=== PATIENT | male | born 1945 | race Caucasian/White ===

== ENCOUNTER 2017-11-14 09:41 | Emergency (ER) | payer MEDICARE, MEDICAID ==
[2017-11-14 10:42] LABS: ADD MAN DIFF? NO
[2017-11-14 10:44] LABS: WHITE BLOOD COUNT 4.6 10^3/ul (4.8-10.8)
[2017-11-14 10:45] LABS: ABNORMAL IP MESSAGE 1; BASOPHILS % 0.6 % (0.0-2.0); EOSINOPHILS # 0.3 10^3/ul (0.0-0.5); EOSINOPHILS % 5.4 % (0.0-7.0); HEMATOCRIT 21.6 % (42.0-52.0); LYMPHOCYTES # 0.7 10^3/ul (0.8-2.9); LYMPHOCYTES % 14.9 % (15.0-51.0); MEAN CORPUSCULAR HEMOGLOBIN 25.4 pg (29.0-33.0); MEAN CORPUSCULAR HGB CONC 29.6 g/dl (32.0-37.0); MEAN CORPUSCULAR VOLUME 85.7 fl (82.0-101.0); MONOCYTE # 0.3 10^3/ul (0.3-0.9); MONOCYTES % 7.3 % (0.0-11.0); NEUTROPHIL # 3.3 10^3/ul (1.6-7.5); NEUTROPHILS % 71.4 % (39.0-77.0); PLATELET COUNT 335 10^3/UL (140-415); POSITIVE DIFF @See below; RED BLOOD COUNT 2.52 10^6/ul (4.70-6.10); RED CELL DISTRIBUTION WIDTH 16.9 % (11.5-14.5)
[2017-11-14 11:12] LABS: HEMOGLOBIN 6.4 g/dl (14.0-18.0); PATH REVIEW? YES
[2017-11-14 11:51] LABS: ANION GAP 14 (8-16); BLOOD UREA NITROGEN 21 mg/dl (7-20); CALCIUM 6.7 mg/dl (8.4-10.2); CARBON DIOXIDE 26 mmol/L (21-31); CHLORIDE 107 mmol/L (97-110); CREATININE 4.14 mg/dl (0.61-1.24); GLUCOSE 106 mg/dl (70-220); POTASSIUM 3.1 mmol/L (3.5-5.1); SODIUM 144 mmol/L (135-144)
[2017-11-14 14:29] LABS: IMMEDIATE SPIN CROSSMATCH 1 2
== END 2017-11-14 16:58 | disposition home or self-care (01) ==
LOC: E/R 09:41
PROVIDERS: Pediatrics
DX: D64.9 Anemia, unspecified (principal); E11.22 Type 2 diabetes mellitus with diabetic chronic kidney disease; N18.6 End stage renal disease; Z79.4 Long term (current) use of insulin; Z79.01 Long term (current) use of anticoagulants; Z99.2 Dependence on renal dialysis; Z79.82 Long term (current) use of aspirin
CPT/HCPCS: 36415; 36430; 80048; 85025; 86850; 86900; 86901; 86920; 99285-25

== ENCOUNTER 2017-11-30 16:27 | Inpatient (IN) | payer MEDICARE, OTHER, MEDICAID ==
[2017-11-30 19:45] LABS: ADD MAN DIFF? NO
[2017-11-30 19:52] LABS: WHITE BLOOD COUNT 19.7 10^3/ul (4.8-10.8)
[2017-11-30 19:52] LABS: ABNORMAL IP MESSAGE 1; BASOPHIL # 0.1 10^3/ul (0.0-0.1); BASOPHILS % 0.3 % (0.0-2.0); EOSINOPHILS % 0.2 % (0.0-7.0); HEMATOCRIT 28.8 % (42.0-52.0); HEMOGLOBIN 8.7 g/dl (14.0-18.0); LYMPHOCYTES # 0.5 10^3/ul (0.8-2.9); LYMPHOCYTES % 2.5 % (15.0-51.0); MEAN CORPUSCULAR HEMOGLOBIN 25.3 pg (29.0-33.0); MEAN CORPUSCULAR HGB CONC 30.2 g/dl (32.0-37.0); MEAN CORPUSCULAR VOLUME 83.7 fl (82.0-101.0); MEAN PLATELET VOLUME 9.3 fl (7.4-10.4); MONOCYTE # 0.8 10^3/ul (0.3-0.9); MONOCYTES % 3.8 % (0.0-11.0); NEUTROPHIL # 18.2 10^3/ul (1.6-7.5); NEUTROPHILS % 92.3 % (39.0-77.0); PLATELET COUNT 286 10^3/UL (140-415); POSITIVE DIFF @See below; RED BLOOD COUNT 3.44 10^6/ul (4.70-6.10); RED CELL DISTRIBUTION WIDTH 18.1 % (11.5-14.5)
[2017-11-30] MEDS: ACETAMINOPHEN 325 MG TAB PO (19:54)
[2017-11-30] MEDS: SODIUM CHLORIDE 0.9% 1L BAG IV* (19:55)
[2017-11-30 20:05] LABS: ALANINE AMINOTRANSFERASE 24 IU/L (13-69); ALBUMIN 4.2 g/dl (3.3-4.9); ALBUMIN/GLOBULIN RATIO 1.16; ALKALINE PHOSPHATASE 204 IU/L (42-121); ANION GAP 18 (8-16); ASPARTATE AMINO TRANSFERASE 91 IU/L (15-46); BILIRUBIN,INDIRECT 0.4 mg/dl (0-1.1); BILIRUBIN,TOTAL 0.4 mg/dl (0.2-1.3); BLOOD UREA NITROGEN 28 mg/dl (7-20); CALCIUM 8.8 mg/dl (8.4-10.2); CARBON DIOXIDE 32 mmol/L (21-31); CHLORIDE 91 mmol/L (97-110); CREATININE 5.41 mg/dl (0.61-1.24); GLUCOSE 163 mg/dl (70-220); POTASSIUM 3.3 mmol/L (3.5-5.1); SODIUM 138 mmol/L (135-144); TOTAL PROTEIN 7.8 g/dl (6.1-8.1)
[2017-11-30 20:17] LABS: INR 1.15; PROTIME 14.9 Sec (11.9-14.9); PT RATIO 1.2
[2017-11-30 20:18] LABS: PARTIAL THROMBOPLASTIN TIME 37.4 Sec (25.0-35.0)
[2017-11-30 20:30] LABS: LACTIC ACID 1.9 mmol/L (0.5-2.0)
[2017-11-30] MEDS: SOD CHLORIDE 0.9% 500 ML IV (20:56)
[2017-11-30] MEDS: CEFEPIME 1GM/50 ML (PMX) 50 ML IVPB (20:56)
[2017-11-30 21:16] LABS: LACTIC ACID 1.3 mmol/L (0.5-2.0)
[2017-11-30] MEDS: ASPIRIN 81 MG TAB PO (21:35)
[2017-11-30] MEDS: VANCOMYCIN 1 GM (PMX) 250 ML IVPB (21:45)
[2017-11-30] MEDS ORDERED: ONDANSETRON 4 MG INJ IV (22:00)
[2017-11-30] MEDS ORDERED: ACETAMINOPHEN 325 MG TAB PO (22:00)
[2017-11-30 23:26] LABS: LACTIC ACID 0.9 mmol/L (0.5-2.0)
[2017-12-01 09:31] LABS: CREATINE KINASE 720 IU/L (23-200)
[2017-12-01 09:43] LABS: CK INDEX 0.9; CK-MB 6.54 ng/ml (0.0-2.4)
[2017-12-01] MEDS: CLOPIDOGREL 75 MG TAB PO (11:24)
[2017-12-01] MEDS: HEPARIN 25000 UNITS/250 ML 250 ML IV (11:30)
[2017-12-01 12:59] LABS: INR 1.22; PROTIME 15.6 Sec (11.9-14.9); PT RATIO 1.2
[2017-12-01 13:02] LABS: PARTIAL THROMBOPLASTIN TIME 48.5 Sec (25.0-35.0)
[2017-12-01] MEDS ORDERED: VANCOMYCIN IV PER PHARMACY XX (15:00)
[2017-12-01] MEDS ORDERED: NACL 0.9% 3 ML SYG IV (15:00)
[2017-12-01] MEDS ORDERED: ONDANSETRON 4 MG INJ IV (15:00)
[2017-12-01] MEDS ORDERED: GLUCAGON 1 MG INJ IM (16:00)
[2017-12-01] MEDS ORDERED: DEXTROSE 50% 50 ML SYRINGE IV (16:00)
[2017-12-01] MEDS ORDERED: GLUCOSE GEL 15 GRAM TUBE BUCCAL (16:00)
[2017-12-01] MEDS ORDERED: GLUCOSE GEL 15 GRAM TUBE PO ×2 (16:00)
[2017-12-01] MEDS: CEFEPIME 1GM/50 ML (PMX) 50 ML IVPB (17:57)
[2017-12-01] MEDS: INSULIN ASPART [NOVOLOG] 3 ML PEN SC ×3 (18:00→22:08)
[2017-12-01 18:23] LABS: INR 1.15; PROTIME 14.9 Sec (11.9-14.9); PT RATIO 1.2
[2017-12-01 18:24] LABS: PARTIAL THROMBOPLASTIN TIME 53.7 Sec (25.0-35.0)
[2017-12-01] MEDS: VANCOMYCIN 500MG/NS (PMX) 100 ML IVPB (19:16)
[2017-12-01] MEDS: SEVELAMER CARBONATE 0.8 GM PKT PO (20:05)
[2017-12-01] MEDS: MIDODRINE 5 MG TAB PO (20:13)
[2017-12-01] MEDS: INSULIN DETEMIR [LEVEMIR] (100 UNITS/ML) SYG SC (20:13)
[2017-12-01] MEDS: HEPARIN 1000 UNITS/ML 10 ML INJ IV (23:08)
[2017-12-02 00:18] LABS: PROTIME 14.4 Sec (11.9-14.9); PT RATIO 1.1
[2017-12-02 00:20] LABS: PARTIAL THROMBOPLASTIN TIME 59.1 Sec (25.0-35.0)
[2017-12-02] MEDS: HEPARIN 25000 UNITS/250 ML 250 ML IV ×4 (01:04→22:58)
[2017-12-02] MEDS: ACCU-CHEK XX (02:00)
[2017-12-02] MEDS: DEXTROSE 50% 50 ML SYRINGE IV (04:12)
[2017-12-02] MEDS: HYDROCODONE/APAP (5/325) TAB PO ×2 (04:20→10:05)
[2017-12-02] MEDS ORDERED: HEPARIN 1000 UNITS/ML 10 ML INJ IV (05:00)
[2017-12-02] MEDS: LEVOTHYROXINE 100 MCG TAB PO (07:00)
[2017-12-02] MEDS: SEVELAMER CARBONATE 0.8 GM PKT PO ×3 (07:54→17:31)
[2017-12-02] MEDS: INSULIN ASPART [NOVOLOG] 3 ML PEN SC ×8 (08:00→21:00)
[2017-12-02 08:10] LABS: ADD MAN DIFF? NO
[2017-12-02 08:23] LABS: BASOPHIL # 0.1 10^3/ul (0.0-0.1); BASOPHILS % 0.5 % (0.0-2.0); EOSINOPHILS # 0.5 10^3/ul (0.0-0.5); EOSINOPHILS % 3.5 % (0.0-7.0); HEMATOCRIT 25.1 % (42.0-52.0); HEMOGLOBIN 7.6 g/dl (14.0-18.0); LYMPHOCYTES # 1.2 10^3/ul (0.8-2.9); MEAN CORPUSCULAR HEMOGLOBIN 25.6 pg (29.0-33.0); MEAN CORPUSCULAR HGB CONC 30.3 g/dl (32.0-37.0); MEAN CORPUSCULAR VOLUME 84.5 fl (82.0-101.0); MEAN PLATELET VOLUME 10.4 fl (7.4-10.4); MONOCYTE # 0.9 10^3/ul (0.3-0.9); MONOCYTES % 6.3 % (0.0-11.0); NEUTROPHIL # 11.8 10^3/ul (1.6-7.5); NEUTROPHILS % 80.8 % (39.0-77.0); PLATELET COUNT 245 10^3/UL (140-415); RED BLOOD COUNT 2.97 10^6/ul (4.70-6.10)
[2017-12-02 08:23] LABS: WHITE BLOOD COUNT 14.7 10^3/ul (4.8-10.8)
[2017-12-02 08:36] LABS: ALANINE AMINOTRANSFERASE 83 IU/L (13-69); ALBUMIN 3.7 g/dl (3.3-4.9); ALBUMIN/GLOBULIN RATIO 1.19; ALKALINE PHOSPHATASE 129 IU/L (42-121); ANION GAP 15 (8-16); ASPARTATE AMINO TRANSFERASE 155 IU/L (15-46); BILIRUBIN,INDIRECT 0.2 mg/dl (0-1.1); BILIRUBIN,TOTAL 0.2 mg/dl (0.2-1.3); BLOOD UREA NITROGEN 51 mg/dl (7-20); CARBON DIOXIDE 31 mmol/L (21-31); CHLORIDE 93 mmol/L (97-110); GLUCOSE 81 mg/dl (70-220); MAGNESIUM 2.6 mg/dl (1.7-2.5); POTASSIUM 4.3 mmol/L (3.5-5.1); SODIUM 135 mmol/L (135-144); TOTAL PROTEIN 6.8 g/dl (6.1-8.1)
[2017-12-02 08:39] LABS: INR 1.09; PROTIME 14.3 Sec (11.9-14.9); PT RATIO 1.1
[2017-12-02] MEDS: FLUDROCORTISONE 0.1 MG TAB PO (08:40)
[2017-12-02] MEDS: MIDODRINE 5 MG TAB PO (08:40)
[2017-12-02] MEDS: PYRIDOXINE 50 MG TAB PO (08:40)
[2017-12-02] MEDS: MULTIVIT/CA CARB/B CMPLX/FA TAB PO (08:40)
[2017-12-02] MEDS: CLOPIDOGREL 75 MG TAB PO (08:40)
[2017-12-02] MEDS: ASPIRIN (EC) 81 MG TAB PO (08:40)
[2017-12-02 08:41] LABS: PARTIAL THROMBOPLASTIN TIME 56.1 Sec (25.0-35.0)
[2017-12-02] MEDS: CEFEPIME 1GM/50 ML (PMX) 50 ML IVPB (09:45)
[2017-12-02] MEDS: SOD CHLORIDE 0.9% 250 ML IV* (17:17)
[2017-12-02] MEDS: ACETAMINOPHEN 325 MG TAB PO (17:30)
[2017-12-02] MEDS ORDERED: LORAZEPAM 0.5 MG TAB PO (18:00)
[2017-12-02] MEDS: traMADol 50 MG TAB PO (18:47)
[2017-12-02 19:04] LABS: CREATINE KINASE 328 IU/L (23-200)
[2017-12-02 19:10] LABS: INR 1.11; PROTIME 14.5 Sec (11.9-14.9); PT RATIO 1.1
[2017-12-02 19:11] LABS: PARTIAL THROMBOPLASTIN TIME 55.7 Sec (25.0-35.0)
[2017-12-02 19:18] LABS: CK INDEX 1.1; CK-MB 3.75 ng/ml (0.0-2.4)
[2017-12-02 19:37] LABS: HEPATITIS B SURFACE ANTIGEN NEGATIVE (NEGATIVE)
[2017-12-02] MEDS: INSULIN DETEMIR [LEVEMIR] (100 UNITS/ML) SYG SC (20:00)
[2017-12-02] MEDS ORDERED: LIDOCAINE 1% (MDV) 20 ML INJ SC (21:00)
[2017-12-02 22:19] LABS: HEPATITIS B SURFACE ANTIBODY INDETERMINATE (NEGATIVE)
[2017-12-02 23:07] LABS: IMMEDIATE SPIN CROSSMATCH 1 2
[2017-12-03 01:39] LABS: CREATINE KINASE 265 IU/L (23-200)
[2017-12-03 01:53] LABS: CK INDEX 1.3; CK-MB 3.56 ng/ml (0.0-2.4)
[2017-12-03] MEDS: ACCU-CHEK XX (02:00)
[2017-12-03] MEDS: HYDROCODONE/APAP (5/325) TAB PO ×2 (02:10→20:06)
[2017-12-03 05:42] LABS: ADD MAN DIFF? NO
[2017-12-03 06:06] LABS: BASOPHILS % 0.4 % (0.0-2.0); EOSINOPHILS # 0.6 10^3/ul (0.0-0.5); EOSINOPHILS % 6.2 % (0.0-7.0); HEMATOCRIT 29.6 % (42.0-52.0); HEMOGLOBIN 9.6 g/dl (14.0-18.0); LYMPHOCYTES # 0.9 10^3/ul (0.8-2.9); MEAN CORPUSCULAR HEMOGLOBIN 26.9 pg (29.0-33.0); MEAN CORPUSCULAR HGB CONC 32.4 g/dl (32.0-37.0); MEAN CORPUSCULAR VOLUME 82.9 fl (82.0-101.0); MEAN PLATELET VOLUME 9.7 fl (7.4-10.4); MONOCYTE # 0.7 10^3/ul (0.3-0.9); MONOCYTES % 7.8 % (0.0-11.0); NEUTROPHIL # 6.9 10^3/ul (1.6-7.5); NEUTROPHILS % 73.7 % (39.0-77.0); PLATELET COUNT 247 10^3/UL (140-415); RED BLOOD COUNT 3.57 10^6/ul (4.70-6.10); RED CELL DISTRIBUTION WIDTH 17.1 % (11.5-14.5)
[2017-12-03 06:06] LABS: WHITE BLOOD COUNT 9.4 10^3/ul (4.8-10.8)
[2017-12-03 06:07] LABS: PARTIAL THROMBOPLASTIN TIME 24.8 Sec (25.0-35.0)
[2017-12-03 06:20] LABS: INR 0.86; PROTIME 11.8 Sec (11.9-14.9); PT RATIO 0.9
[2017-12-03 06:23] LABS: VANCOMYCIN,RANDOM 15.4 ug/ml
[2017-12-03 06:28] LABS: ANION GAP 14 (8-16); BLOOD UREA NITROGEN 28 mg/dl (7-20); CALCIUM 8.2 mg/dl (8.4-10.2); CARBON DIOXIDE 29 mmol/L (21-31); CHLORIDE 95 mmol/L (97-110); GLUCOSE 131 mg/dl (70-220); POTASSIUM 4.5 mmol/L (3.5-5.1); SODIUM 133 mmol/L (135-144)
[2017-12-03] MEDS: traMADol 50 MG TAB PO ×2 (06:39→15:40)
[2017-12-03] MEDS: DIAZEPAM 5 MG/ML SYG IM (07:25)
[2017-12-03] MEDS: LEVOTHYROXINE 100 MCG TAB PO (07:31)
[2017-12-03] MEDS: SEVELAMER CARBONATE 0.8 GM PKT PO ×3 (07:38→17:53)
[2017-12-03] MEDS: INSULIN ASPART [NOVOLOG] 3 ML PEN SC ×7 (07:45→20:40)
[2017-12-03] MEDS ORDERED: DIPHENHYDRAMINE 50 MG CAP PO (08:00)
[2017-12-03] MEDS ORDERED: DIAZEPAM 5 MG TAB PO (08:00)
[2017-12-03 08:12] LABS: PARTIAL THROMBOPLASTIN TIME 22.4 Sec (25.0-35.0)
[2017-12-03 08:14] LABS: IRON 156 ug/dl (35-150)
[2017-12-03 08:15] LABS: PHOSPHORUS 3.6 mg/dl (2.5-4.9)
[2017-12-03 08:24] LABS: % IRON SATURATION 74 % SAT (22-52); TOTAL IRON BINDING CAPACITY 211 ug/dl (241-421)
[2017-12-03] MEDS: PYRIDOXINE 50 MG TAB PO (08:52)
[2017-12-03] MEDS: MULTIVIT/CA CARB/B CMPLX/FA TAB PO (08:52)
[2017-12-03] MEDS: CLOPIDOGREL 75 MG TAB PO (08:52)
[2017-12-03] MEDS: ASPIRIN (EC) 81 MG TAB PO (08:52)
[2017-12-03] MEDS: CEFEPIME 1GM/50 ML (PMX) 50 ML IVPB (08:53)
[2017-12-03 09:04] LABS: HEPATITIS C VIRAL ANTIBODY NEGATIVE (NEGATIVE)
[2017-12-03 09:08] LABS: ERYTHROCYTE SEDIMENTATION RATE 81 mm/Hr (0-20)
[2017-12-03 12:33] LABS: PROTIME 13.3 Sec (11.9-14.9)
[2017-12-03 12:34] LABS: PARTIAL THROMBOPLASTIN TIME 55.8 Sec (25.0-35.0)
[2017-12-03] MEDS: HEPARIN 25000 UNITS/250 ML 250 ML IV (15:21)
[2017-12-03] MEDS: VANCOMYCIN 1 GM 250 ML IVPB (15:29)
[2017-12-03] MEDS: EPOETIN 3000 UNITS/1 ML INJ (ESRD) SC (17:54)
[2017-12-03] MEDS: INSULIN DETEMIR [LEVEMIR] (100 UNITS/ML) SYG SC (20:00)
[2017-12-03] MEDS: DOCUSATE SODIUM 100 MG CAP PO (20:45)
[2017-12-03 23:25] LABS: INR 0.94; PROTIME 12.7 Sec (11.9-14.9)
[2017-12-03 23:26] LABS: PARTIAL THROMBOPLASTIN TIME 40.2 Sec (25.0-35.0)
[2017-12-04] MEDS: HEPARIN 1000 UNITS/ML 10 ML INJ IV (00:34)
[2017-12-04] MEDS: HEPARIN 25000 UNITS/250 ML 250 ML IV ×2 (00:43→08:14)
[2017-12-04] MEDS: ACCU-CHEK XX (02:00)
[2017-12-04 06:49] LABS: ADD MAN DIFF? NO
[2017-12-04 06:51] LABS: BASOPHIL # 0.1 10^3/ul (0.0-0.1); EOSINOPHILS # 0.6 10^3/ul (0.0-0.5); EOSINOPHILS % 8.8 % (0.0-7.0); HEMATOCRIT 30.3 % (42.0-52.0); HEMOGLOBIN 9.5 g/dl (14.0-18.0); LYMPHOCYTES # 1.1 10^3/ul (0.8-2.9); LYMPHOCYTES % 15.7 % (15.0-51.0); MEAN CORPUSCULAR HEMOGLOBIN 26.5 pg (29.0-33.0); MEAN CORPUSCULAR HGB CONC 31.4 g/dl (32.0-37.0); MEAN CORPUSCULAR VOLUME 84.4 fl (82.0-101.0); MEAN PLATELET VOLUME 9.9 fl (7.4-10.4); MONOCYTE # 0.6 10^3/ul (0.3-0.9); MONOCYTES % 8.1 % (0.0-11.0); NEUTROPHIL # 4.5 10^3/ul (1.6-7.5); NEUTROPHILS % 64.1 % (39.0-77.0); PLATELET COUNT 239 10^3/UL (140-415); RED BLOOD COUNT 3.59 10^6/ul (4.70-6.10); RED CELL DISTRIBUTION WIDTH 17.9 % (11.5-14.5)
[2017-12-04] MEDS: LEVOTHYROXINE 100 MCG TAB PO (07:00)
[2017-12-04 07:06] LABS: ANION GAP 17 (8-16); BLOOD UREA NITROGEN 37 mg/dl (7-20); CALCIUM 8.2 mg/dl (8.4-10.2); CARBON DIOXIDE 28 mmol/L (21-31); CHLORIDE 94 mmol/L (97-110); CREATININE 6.33 mg/dl (0.61-1.24); GLUCOSE 157 mg/dl (70-220); INR 0.93; POTASSIUM 4.6 mmol/L (3.5-5.1); PROTIME 12.6 Sec (11.9-14.9); SODIUM 134 mmol/L (135-144)
[2017-12-04 07:26] LABS: PARTIAL THROMBOPLASTIN TIME 71.9 Sec (25.0-35.0)
[2017-12-04] MEDS: SEVELAMER CARBONATE 0.8 GM PKT PO ×3 (08:00→18:24)
[2017-12-04] MEDS: INSULIN ASPART [NOVOLOG] 3 ML PEN SC ×7 (08:00→21:00)
[2017-12-04] MEDS: MULTIVIT/CA CARB/B CMPLX/FA TAB PO ×2 (09:00→15:16)
[2017-12-04] MEDS: PYRIDOXINE 50 MG TAB PO ×2 (09:00→15:16)
[2017-12-04] MEDS: ASPIRIN (EC) 81 MG TAB PO ×2 (09:00→15:15)
[2017-12-04] MEDS: CLOPIDOGREL 75 MG TAB PO ×2 (09:00→15:15)
[2017-12-04] MEDS: CEFEPIME 1GM/50 ML (PMX) 50 ML IVPB (09:29)
[2017-12-04] MEDS: DIPHENHYDRAMINE 50 MG CAP PO (09:45)
[2017-12-04] MEDS ORDERED: IODIXANOL LOCM 100 ML BTL (10:22)
[2017-12-04] MEDS ORDERED: HEPARIN 1000 UNITS/ML 10 ML INJ (10:22)
[2017-12-04] MEDS ORDERED: FENTAnyl 50 MCG/ML VIAL (10:22)
[2017-12-04] MEDS ORDERED: MIDAZOLAM 1 MG/ML 2 ML INJ (10:22)
[2017-12-04] MEDS ORDERED: LIDOCAINE 1% (MDV) 10 ML INJ (10:22)
[2017-12-04] MEDS ORDERED: VERAPAMIL 5 MG INJ (10:23)
[2017-12-04] MEDS ORDERED: NITROGLYCERIN (IC) 100 MCG/ML INJ (10:23)
[2017-12-04] MEDS ORDERED: SOD CHLORIDE 0.9% 500 ML (10:26)
[2017-12-04] MEDS ORDERED: ONDANSETRON 4 MG INJ IV (12:00)
[2017-12-04] MEDS ORDERED: AL HYDROX/MG HYDROX/SIMETH 30 ML CUP PO (12:00)
[2017-12-04] MEDS ORDERED: morphine 2 MG INJ IV (12:00)
[2017-12-04] MEDS: DIAZEPAM 5 MG/ML SYG IM (13:55)
[2017-12-04] MEDS ORDERED: HYDROCODONE/APAP (5/325) TAB PO (14:30)
[2017-12-04] MEDS: BENAZEPRIL 5 MG TAB PO (14:43)
[2017-12-04] MEDS: SOD CHLORIDE 0.9% 1,000 ML IV (14:43)
[2017-12-04] MEDS: INSULIN DETEMIR [LEVEMIR] (100 UNITS/ML) SYG SC (21:53)
[2017-12-05] MEDS: ACCU-CHEK XX (02:53)
[2017-12-05] MEDS: LEVOTHYROXINE 100 MCG TAB PO (06:13)
[2017-12-05 06:24] LABS: ADD MAN DIFF? NO
[2017-12-05 06:31] LABS: WHITE BLOOD COUNT 7.1 10^3/ul (4.8-10.8)
[2017-12-05 06:31] LABS: BASOPHIL # 0.1 10^3/ul (0.0-0.1); BASOPHILS % 1.1 % (0.0-2.0); EOSINOPHILS # 0.5 10^3/ul (0.0-0.5); EOSINOPHILS % 7.3 % (0.0-7.0); HEMATOCRIT 30.4 % (42.0-52.0); HEMOGLOBIN 9.6 g/dl (14.0-18.0); LYMPHOCYTES # 0.9 10^3/ul (0.8-2.9); LYMPHOCYTES % 12.6 % (15.0-51.0); MEAN CORPUSCULAR HGB CONC 31.6 g/dl (32.0-37.0); MEAN CORPUSCULAR VOLUME 85.6 fl (82.0-101.0); MEAN PLATELET VOLUME 9.6 fl (7.4-10.4); MONOCYTE # 0.5 10^3/ul (0.3-0.9); MONOCYTES % 7.6 % (0.0-11.0); NEUTROPHIL # 4.9 10^3/ul (1.6-7.5); NEUTROPHILS % 69.4 % (39.0-77.0); PLATELET COUNT 245 10^3/UL (140-415); RED BLOOD COUNT 3.55 10^6/ul (4.70-6.10); RED CELL DISTRIBUTION WIDTH 18.1 % (11.5-14.5)
[2017-12-05 07:28] LABS: ALBUMIN 3.6 g/dl (3.3-4.9); ANION GAP 18 (8-16); BLOOD UREA NITROGEN 46 mg/dl (7-20); CALCIUM 8.4 mg/dl (8.4-10.2); CARBON DIOXIDE 25 mmol/L (21-31); CHLORIDE 97 mmol/L (97-110); CREATININE 8.35 mg/dl (0.61-1.24); GLUCOSE 87 mg/dl (70-220); PHOSPHORUS 4.8 mg/dl (2.5-4.9); SODIUM 135 mmol/L (135-144)
[2017-12-05] MEDS: INSULIN ASPART [NOVOLOG] 3 ML PEN SC ×7 (08:00→20:28)
[2017-12-05] MEDS: MULTIVIT/CA CARB/B CMPLX/FA TAB PO (09:25)
[2017-12-05] MEDS: ASPIRIN (EC) 81 MG TAB PO (09:25)
[2017-12-05] MEDS: CLOPIDOGREL 75 MG TAB PO (09:25)
[2017-12-05] MEDS: CEFEPIME 1GM/50 ML (PMX) 50 ML IVPB (09:26)
[2017-12-05] MEDS: PYRIDOXINE 50 MG TAB PO (09:26)
[2017-12-05] MEDS: SEVELAMER CARBONATE 0.8 GM PKT PO ×3 (09:26→17:00)
[2017-12-05] MEDS: BENAZEPRIL 5 MG TAB PO (09:47)
[2017-12-05] MEDS: EPOETIN 3000 UNITS/1 ML INJ (ESRD) SC (16:57)
[2017-12-05] MEDS: INSULIN DETEMIR [LEVEMIR] (100 UNITS/ML) SYG SC (20:00)
[2017-12-05] MEDS: BENAZEPRIL 10 MG TAB PO (20:29)
[2017-12-06] MEDS: ACCU-CHEK XX (02:00)
[2017-12-06] MEDS: hydrALAzine 20 MG INJ IV ×2 (06:01→11:38)
[2017-12-06] MEDS: LEVOTHYROXINE 100 MCG TAB PO (06:02)
[2017-12-06 08:03] LABS: VANCOMYCIN,RANDOM 19.7 ug/ml
[2017-12-06] MEDS: INSULIN ASPART [NOVOLOG] 3 ML PEN SC ×7 (08:03→20:14)
[2017-12-06] MEDS: CEFEPIME 1GM/50 ML (PMX) 50 ML IVPB (08:12)
[2017-12-06] MEDS: ASPIRIN (EC) 81 MG TAB PO (08:13)
[2017-12-06] MEDS: CLOPIDOGREL 75 MG TAB PO (08:13)
[2017-12-06] MEDS: SEVELAMER CARBONATE 0.8 GM PKT PO ×3 (08:13→17:49)
[2017-12-06] MEDS: MULTIVIT/CA CARB/B CMPLX/FA TAB PO (08:13)
[2017-12-06] MEDS: BENAZEPRIL 10 MG TAB PO ×2 (08:13→20:10)
[2017-12-06] MEDS: BISACODYL (EC) 5 MG TAB PO (11:14)
[2017-12-06] MEDS: PYRIDOXINE 50 MG TAB PO (11:37)
[2017-12-06] MEDS: DIAZEPAM 5 MG TAB PO (19:37)
[2017-12-06] MEDS: DOCUSATE SODIUM 100 MG CAP PO (20:09)
[2017-12-06] MEDS: ACETAMINOPHEN 325 MG TAB PO (20:10)
[2017-12-06] MEDS: INSULIN DETEMIR [LEVEMIR] (100 UNITS/ML) SYG SC (20:20)
[2017-12-07] MEDS: ACCU-CHEK XX (02:00)
[2017-12-07] MEDS: LEVOTHYROXINE 100 MCG TAB PO (06:35)
[2017-12-07] MEDS: VANCOMYCIN 750 MG in SOD CHLORIDE 0.9% 150 ML IVPB (06:35)
[2017-12-07] MEDS: INSULIN ASPART [NOVOLOG] 3 ML PEN SC ×7 (07:55→21:00)
[2017-12-07] MEDS: PYRIDOXINE 50 MG TAB PO (09:27)
[2017-12-07] MEDS: SEVELAMER CARBONATE 0.8 GM PKT PO ×3 (09:27→17:21)
[2017-12-07] MEDS: MULTIVIT/CA CARB/B CMPLX/FA TAB PO (09:27)
[2017-12-07] MEDS: ASPIRIN (EC) 81 MG TAB PO (09:28)
[2017-12-07] MEDS: CLOPIDOGREL 75 MG TAB PO (09:28)
[2017-12-07] MEDS: BENAZEPRIL 10 MG TAB PO (09:29)
[2017-12-07] MEDS: CEFEPIME 1GM/50 ML (PMX) 50 ML IVPB (09:29)
[2017-12-07] MEDS: traMADol 50 MG TAB PO (14:14)
[2017-12-07] MEDS ORDERED: morphine LIQ (10 MG/5 ML) CUP PO (17:00)
[2017-12-07] MEDS ORDERED: EPOETIN 3000 UNITS/1 ML INJ (ESRD) SC (17:00)
[2017-12-07] MEDS ORDERED: POLYETHYLENE GLYCOL 17 GM PACKET (17:20)
[2017-12-07] MEDS: BISACODYL (EC) 5 MG TAB PO (17:22)
[2017-12-07] MEDS: BENAZEPRIL 20 MG TAB PO (21:02)
[2017-12-07] MEDS: DICLOFENAC SODIUM 1% GEL 100 GM TUBE TP (21:03)
[2017-12-07] MEDS: SENNA TAB PO (21:03)
[2017-12-07] MEDS: INSULIN DETEMIR [LEVEMIR] (100 UNITS/ML) SYG SC (21:19)
[2017-12-07] MEDS: LIDOCAINE 1% (MDV) 10 ML INJ INJ (23:07)
[2017-12-08] MEDS: ACCU-CHEK XX (02:00)
[2017-12-08] MEDS: ACETAMINOPHEN 325 MG TAB PO (02:55)
[2017-12-08] MEDS: LEVOTHYROXINE 100 MCG TAB PO (06:50)
[2017-12-08] MEDS: SEVELAMER CARBONATE 0.8 GM PKT PO ×3 (08:32→17:40)
[2017-12-08] MEDS: MULTIVIT/CA CARB/B CMPLX/FA TAB PO (08:34)
[2017-12-08] MEDS: PYRIDOXINE 50 MG TAB PO (08:34)
[2017-12-08] MEDS: CLOPIDOGREL 75 MG TAB PO (08:35)
[2017-12-08] MEDS: BENAZEPRIL 20 MG TAB PO (08:35)
[2017-12-08] MEDS: ASPIRIN (EC) 81 MG TAB PO (08:35)
[2017-12-08] MEDS: INSULIN ASPART [NOVOLOG] 3 ML PEN SC ×6 (08:39→17:41)
[2017-12-08] MEDS: BISACODYL 10 MG SUPP PR (08:50)
[2017-12-08] MEDS: CEFEPIME 1GM/50 ML (PMX) 50 ML IVPB (08:50)
[2017-12-08] MEDS: SENNA TAB PO (08:50)
[2017-12-08] MEDS ORDERED: EPOETIN 10000 UNITS/1 ML INJ (ESRD) SC (10:13)
[2017-12-08] MEDS: hydrALAzine 20 MG INJ IV ×2 (15:49→18:10)
[2017-12-08] MEDS: EPOETIN 2000 UNITS/1 ML INJ (ESRD) SC (15:54)
[2017-12-08] MEDS: EPOETIN 3000 UNITS/1 ML INJ (ESRD) SC (15:55)
== END 2017-12-08 19:30 | disposition home or self-care (01) | DRG 871 ==
LOC: 6WM 12-02 10:23 → MS4 21:47 → E/R 16:27 → 6WM 12-01 20:31
PROC: 4A023N7 Measurement of Cardiac Sampling and Pressure, Left Heart, Percutaneous Approach (ICD-10-PCS; principal; 2017-12-04 09:58)
PROC: B211YZZ Fluoroscopy of Multiple Coronary Arteries using Other Contrast (ICD-10-PCS; 2017-12-04 09:58)
PROC: B215YZZ Fluoroscopy of Left Heart using Other Contrast (ICD-10-PCS; 2017-12-04 09:58)
PROC: 30233N1 Transfusion of Nonautologous Red Blood Cells into Peripheral Vein, Percutaneous Approach (ICD-10-PCS; 2017-12-04 09:58)
PROC: 5A1D70Z Performance of Urinary Filtration, Intermittent, Less than 6 Hours Per Day (ICD-10-PCS; 2017-12-04 09:58)
PROC: 5A1D70Z Performance of Urinary Filtration, Intermittent, Less than 6 Hours Per Day (ICD-10-PCS; 2017-12-04 09:58)
DX: A41.9 Sepsis, unspecified organism (principal); I21.4 Non-ST elevation (NSTEMI) myocardial infarction; N18.6 End stage renal disease; G92 Toxic encephalopathy; J18.9 Pneumonia, unspecified organism; I12.0 Hypertensive chronic kidney disease with stage 5 chronic kidney disease or end stage renal disease; E87.3 Alkalosis; I42.9 Cardiomyopathy, unspecified; E11.21 Type 2 diabetes mellitus with diabetic nephropathy; E11.22 Type 2 diabetes mellitus with diabetic chronic kidney disease; I95.3 Hypotension of hemodialysis; E11.621 Type 2 diabetes mellitus with foot ulcer; L97.529 Non-pressure chronic ulcer of other part of left foot with unspecified severity; E11.42 Type 2 diabetes mellitus with diabetic polyneuropathy; E11.319 Type 2 diabetes mellitus with unspecified diabetic retinopathy without macular edema; D63.8 Anemia in other chronic diseases classified elsewhere; D63.1 Anemia in chronic kidney disease; I25.119 Atherosclerotic heart disease of native coronary artery with unspecified angina pectoris; E87.6 Hypokalemia; E03.9 Hypothyroidism, unspecified; E78.5 Hyperlipidemia, unspecified; Z79.4 Long term (current) use of insulin; Z79.82 Long term (current) use of aspirin; Z79.02 Long term (current) use of antithrombotics/antiplatelets; Z99.2 Dependence on renal dialysis; Z87.891 Personal history of nicotine dependence; Z89.422 Acquired absence of other left toe(s); Z98.62 Peripheral vascular angioplasty status; Z95.1 Presence of aortocoronary bypass graft; Z89.411 Acquired absence of right great toe; K59.00 Constipation, unspecified; Y95 Nosocomial condition; R00.1 Bradycardia, unspecified
CPT/HCPCS: 36415; 36430; 71045; 80048; 80053; 80069; 80202; 82330; 82550; 82553; 82962; 83036; 83540; 83605; 83735; 84100; 84484; 85025; 85610; 85651; 85730; 86706; 86803; 86850; 86900; 86901; 86920; 87040; 87081; 87340; 90935; 93005; 93306; 93458; 96365; 96375; 97162; 99291-25

== ENCOUNTER 2017-12-16 19:27 | Emergency (ER) | payer SELFPAY, OTHER, MEDICARE | END 2017-12-16 22:42 | disposition left against medical advice (07) | LOC: E/R 19:27 | DX: Z53.21 Procedure and treatment not carried out due to patient leaving prior to being seen by health care provider (principal) ==

== ENCOUNTER 2018-11-19 19:41 | Inpatient (IN) | payer MEDICARE, OTHER, MEDICAID ==
[2018-11-19 20:32] LABS: ADD MAN DIFF? NO
[2018-11-19 20:34] LABS: WHITE BLOOD COUNT 5.9 10^3/ul (4.8-10.8)
[2018-11-19 20:34] LABS: ABNORMAL IP MESSAGE 1; BASOPHILS % 0.3 % (0.0-2.0); EOSINOPHILS # 0.2 10^3/ul (0.0-0.5); EOSINOPHILS % 3.5 % (0.0-7.0); HEMOGLOBIN 8.2 g/dl (14.0-18.0); LYMPHOCYTES # 0.5 10^3/ul (0.8-2.9); LYMPHOCYTES % 7.9 % (15.0-51.0); MEAN CORPUSCULAR HEMOGLOBIN 29.2 pg (29.0-33.0); MEAN CORPUSCULAR HGB CONC 32.8 g/dl (32.0-37.0); MEAN PLATELET VOLUME 9.4 fl (7.4-10.4); MONOCYTE # 0.7 10^3/ul (0.3-0.9); MONOCYTES % 11.1 % (0.0-11.0); NEUTROPHIL # 4.6 10^3/ul (1.6-7.5); NEUTROPHILS % 76.9 % (39.0-77.0); PLATELET COUNT 178 10^3/UL (140-415); POSITIVE DIFF @See below; RED BLOOD COUNT 2.81 10^6/ul (4.70-6.10); RED CELL DISTRIBUTION WIDTH 15.3 % (11.5-14.5)
[2018-11-19] MEDS: morphine 4 MG/ML VIAL IV (20:40)
[2018-11-19] MEDS: SOD CHLORIDE 0.9% 1,000 ML IV (20:40)
[2018-11-19] MEDS: ONDANSETRON 4 MG INJ IV ×2 (20:40→22:56)
[2018-11-19 20:55] LABS: INR 1.09; PROTIME 14.2 Sec (11.9-14.9); PT RATIO 1.1
[2018-11-19 20:56] LABS: PARTIAL THROMBOPLASTIN TIME 36.2 Sec (23.0-35.0)
[2018-11-19 20:59] LABS: ALANINE AMINOTRANSFERASE 15 IU/L (13-69); ALBUMIN 4.1 g/dl (3.3-4.9); ALBUMIN/GLOBULIN RATIO 1.13; ALKALINE PHOSPHATASE 147 IU/L (42-121); AMYLASE 131 U/L (11-123); ANION GAP 10 (5-13); ASPARTATE AMINO TRANSFERASE 32 IU/L (15-46); BILIRUBIN,INDIRECT 0.4 mg/dl (0-1.1); BILIRUBIN,TOTAL 0.4 mg/dl (0.2-1.3); BLOOD UREA NITROGEN 31 mg/dl (7-20); CARBON DIOXIDE 34 mmol/L (21-31); CHLORIDE 95 mmol/L (97-110); CREATININE 4.77 mg/dl (0.61-1.24); GLUCOSE 115 mg/dl (70-220); LIPASE 209 U/L (23-300); POTASSIUM 4.8 mmol/L (3.5-5.1); SODIUM 139 mmol/L (135-144); TOTAL PROTEIN 7.7 g/dl (6.1-8.1)
[2018-11-19 21:10] LABS: TROPONIN-I 0.018 ng/ml (0.000-0.120)
[2018-11-19] MEDS: HYDROmorphONE 1 MG/ML SYG IV (22:56)
[2018-11-19] MEDS ORDERED: ACETAMINOPHEN 325 MG TAB PO (23:30)
[2018-11-19] MEDS ORDERED: ONDANSETRON 4 MG INJ IV (23:30)
[2018-11-19] MEDS ORDERED: GLUCAGON 1 MG INJ IM (23:45)
[2018-11-19] MEDS ORDERED: GLUCOSE GEL 15 GRAM TUBE PO ×2 (23:45)
[2018-11-20] MEDS ORDERED: ALBUTEROL/IPRATROPIUM (NEB) 3 ML AMP HHN
[2018-11-20] MEDS ORDERED: ONDANSETRON 4 MG INJ IV
[2018-11-20] MEDS ORDERED: NACL 0.9% 3 ML SYG IV
[2018-11-20] MEDS: morphine 2 MG INJ IV ×2 (01:24→10:35)
[2018-11-20] MEDS: DEXTROSE 5%-0.45% NACL 1,000 ML IV ×2 (01:58→21:12)
[2018-11-20] MEDS ORDERED: ACCU-CHEK XX (02:00)
[2018-11-20] MEDS: INSULIN ASPART [NOVOLOG] 3 ML PEN SC ×6 (05:15→21:00)
[2018-11-20 06:04] LABS: ADD MAN DIFF? NO
[2018-11-20 06:18] LABS: WHITE BLOOD COUNT 6.2 10^3/ul (4.8-10.8)
[2018-11-20 06:19] LABS: BASOPHIL # 0.1 10^3/ul (0.0-0.1); EOSINOPHILS # 0.4 10^3/ul (0.0-0.5); EOSINOPHILS % 7.1 % (0.0-7.0); HEMOGLOBIN 8.4 g/dl (14.0-18.0); LYMPHOCYTES # 0.7 10^3/ul (0.8-2.9); LYMPHOCYTES % 11.5 % (15.0-51.0); MEAN CORPUSCULAR HEMOGLOBIN 29.4 pg (29.0-33.0); MEAN CORPUSCULAR HGB CONC 32.3 g/dl (32.0-37.0); MEAN CORPUSCULAR VOLUME 90.9 fl (82.0-101.0); MEAN PLATELET VOLUME 9.7 fl (7.4-10.4); MONOCYTE # 0.6 10^3/ul (0.3-0.9); MONOCYTES % 10.3 % (0.0-11.0); NEUTROPHIL # 4.3 10^3/ul (1.6-7.5); NEUTROPHILS % 69.8 % (39.0-77.0); PLATELET COUNT 171 10^3/UL (140-415); RED BLOOD COUNT 2.86 10^6/ul (4.70-6.10); RED CELL DISTRIBUTION WIDTH 15.7 % (11.5-14.5)
[2018-11-20 06:43] LABS: HEMOGLOBIN A1C 4.5 % (0-5.9)
[2018-11-20 07:17] LABS: ALANINE AMINOTRANSFERASE 13 IU/L (13-69); ALBUMIN 3.8 g/dl (3.3-4.9); ALBUMIN/GLOBULIN RATIO 1.11; ALKALINE PHOSPHATASE 131 IU/L (42-121); ANION GAP 10 (5-13); ASPARTATE AMINO TRANSFERASE 35 IU/L (15-46); BILIRUBIN,INDIRECT 0.5 mg/dl (0-1.1); BILIRUBIN,TOTAL 0.5 mg/dl (0.2-1.3); BLOOD UREA NITROGEN 35 mg/dl (7-20); CALCIUM 8.4 mg/dl (8.4-10.2); CARBON DIOXIDE 31 mmol/L (21-31); CHLORIDE 99 mmol/L (97-110); CREATININE 5.23 mg/dl (0.61-1.24); GLUCOSE 137 mg/dl (70-220); MAGNESIUM 2.3 mg/dl (1.7-2.5); PHOSPHORUS 3.3 mg/dl (2.5-4.9); POTASSIUM 5.2 mmol/L (3.5-5.1); SODIUM 140 mmol/L (135-144); TOTAL PROTEIN 7.2 g/dl (6.1-8.1)
[2018-11-20] MEDS ORDERED: INSULIN ASPART [NOVOLOG] 3 ML PEN SC ×2 (08:00→09:00)
[2018-11-20] MEDS: FAMOTIDINE 20 MG INJ IV (08:46)
[2018-11-20] MEDS ORDERED: HYDROCODONE/APAP (10/325) TAB PO (14:00)
[2018-11-20] MEDS: ACCU-CHEK XX ×3 (14:00→20:05)
[2018-11-20] MEDS ORDERED: HYDROCODONE/APAP (5/325) TAB PO (16:00)
[2018-11-20] MEDS ORDERED: DICLOFENAC SODIUM 1% GEL 100 GM TUBE TP (17:00)
[2018-11-20] MEDS: CHOLECALCIFEROL 2,000 UNIT CAP PO (17:00)
[2018-11-20] MEDS: SEVELAMER CARBONATE 0.8 GM PKT PO (17:02)
[2018-11-20] MEDS: BENAZEPRIL 20 MG TAB PO (20:10)
[2018-11-20] MEDS: INSULIN GLARGINE [LANTus] (100 UNITS/ML) SYG SC (21:11)
[2018-11-21] MEDS: INSULIN ASPART [NOVOLOG] 3 ML PEN SC ×9 (01:00→20:49)
[2018-11-21] MEDS: DEXTROSE 5%-0.45% NACL 1,000 ML IV (01:38)
[2018-11-21] MEDS: LEVOTHYROXINE 100 MCG TAB PO (06:10)
[2018-11-21] MEDS: ACCU-CHEK XX ×6 (07:30→20:05)
[2018-11-21] MEDS: FAMOTIDINE 20 MG TAB PO (08:49)
[2018-11-21] MEDS: LINAGLIPTIN 5 MG TABLET PO (08:49)
[2018-11-21] MEDS: SEVELAMER CARBONATE 0.8 GM PKT PO ×3 (08:50→17:51)
[2018-11-21] MEDS: MULTIVIT/CA CARB/B CMPLX/FA TAB PO (08:50)
[2018-11-21] MEDS: BENAZEPRIL 20 MG TAB PO ×2 (08:50→20:53)
[2018-11-21] MEDS: CHOLECALCIFEROL 2,000 UNIT CAP PO (08:50)
[2018-11-21 11:35] LABS: IMMEDIATE SPIN CROSSMATCH 1 4
[2018-11-21] MEDS: GLUCOSE GEL 15 GRAM TUBE BUCCAL (15:46)
[2018-11-21] MEDS: DEXTROSE 50% 50 ML SYRINGE IV (16:22)
[2018-11-21 19:29] LABS: ADD MAN DIFF? NO
[2018-11-21 19:30] LABS: WHITE BLOOD COUNT 6.2 10^3/ul (4.8-10.8)
[2018-11-21 19:30] LABS: BASOPHIL # 0.1 10^3/ul (0.0-0.1); BASOPHILS % 1.1 % (0.0-2.0); EOSINOPHILS # 0.5 10^3/ul (0.0-0.5); EOSINOPHILS % 8.7 % (0.0-7.0); HEMATOCRIT 30.9 % (42.0-52.0); HEMOGLOBIN 10.2 g/dl (14.0-18.0); LYMPHOCYTES # 0.7 10^3/ul (0.8-2.9); MEAN CORPUSCULAR HEMOGLOBIN 28.7 pg (29.0-33.0); MEAN PLATELET VOLUME 9.5 fl (7.4-10.4); MONOCYTE # 0.7 10^3/ul (0.3-0.9); MONOCYTES % 11.6 % (0.0-11.0); NEUTROPHIL # 4.1 10^3/ul (1.6-7.5); PLATELET COUNT 179 10^3/UL (140-415); RED BLOOD COUNT 3.55 10^6/ul (4.70-6.10); RED CELL DISTRIBUTION WIDTH 15.6 % (11.5-14.5)
[2018-11-21] MEDS: INSULIN GLARGINE [LANTus] (100 UNITS/ML) SYG SC (20:54)
[2018-11-21 21:10] LABS: HEPATITIS B SURFACE ANTIGEN NEGATIVE (NEGATIVE)
[2018-11-22] MEDS: INSULIN ASPART [NOVOLOG] 3 ML PEN SC ×9 (01:03→20:13)
[2018-11-22] MEDS: morphine 2 MG INJ IV ×3 (05:38→21:21)
[2018-11-22] MEDS: LEVOTHYROXINE 100 MCG TAB PO (06:12)
[2018-11-22] MEDS: ACCU-CHEK XX ×6 (07:30→20:05)
[2018-11-22] MEDS: SEVELAMER CARBONATE 0.8 GM PKT PO ×3 (07:35→17:12)
[2018-11-22] MEDS: DEXTROSE 5%-0.45% NACL 1,000 ML IV (08:11)
[2018-11-22] MEDS: BENAZEPRIL 20 MG TAB PO ×2 (08:12→20:13)
[2018-11-22] MEDS: FAMOTIDINE 20 MG TAB PO (09:07)
[2018-11-22] MEDS: MULTIVIT/CA CARB/B CMPLX/FA TAB PO (09:09)
[2018-11-22] MEDS: LINAGLIPTIN 5 MG TABLET PO (09:09)
[2018-11-22] MEDS: CHOLECALCIFEROL 2,000 UNIT CAP PO (09:09)
[2018-11-22 11:21] LABS: ADD MAN DIFF? NO
[2018-11-22 11:25] LABS: WHITE BLOOD COUNT 4.9 10^3/ul (4.8-10.8)
[2018-11-22 11:25] LABS: BASOPHIL # 0.1 10^3/ul (0.0-0.1); BASOPHILS % 1.4 % (0.0-2.0); EOSINOPHILS # 0.5 10^3/ul (0.0-0.5); HEMATOCRIT 31.7 % (42.0-52.0); HEMOGLOBIN 10.5 g/dl (14.0-18.0); LYMPHOCYTES # 0.8 10^3/ul (0.8-2.9); LYMPHOCYTES % 15.2 % (15.0-51.0); MEAN CORPUSCULAR HEMOGLOBIN 28.9 pg (29.0-33.0); MEAN CORPUSCULAR HGB CONC 33.1 g/dl (32.0-37.0); MEAN CORPUSCULAR VOLUME 87.3 fl (82.0-101.0); MEAN PLATELET VOLUME 9.4 fl (7.4-10.4); MONOCYTE # 0.8 10^3/ul (0.3-0.9); MONOCYTES % 15.4 % (0.0-11.0); NEUTROPHIL # 2.8 10^3/ul (1.6-7.5); NEUTROPHILS % 57.4 % (39.0-77.0); PLATELET COUNT 169 10^3/UL (140-415); RED BLOOD COUNT 3.63 10^6/ul (4.70-6.10); RED CELL DISTRIBUTION WIDTH 15.9 % (11.5-14.5)
[2018-11-22] MEDS: INSULIN GLARGINE [LANTus] (100 UNITS/ML) SYG SC (20:14)
[2018-11-23] MEDS: LEVOTHYROXINE 100 MCG TAB PO (06:09)
[2018-11-23] MEDS: ACCU-CHEK XX ×6 (07:30→19:55)
[2018-11-23] MEDS: INSULIN ASPART [NOVOLOG] 3 ML PEN SC ×6 (07:35→17:30)
[2018-11-23] MEDS: SEVELAMER CARBONATE 0.8 GM PKT PO ×3 (07:35→17:34)
[2018-11-23 08:03] LABS: ADD MAN DIFF? NO
[2018-11-23 08:07] LABS: BASOPHIL # 0.1 10^3/ul (0.0-0.1); BASOPHILS % 1.5 % (0.0-2.0); EOSINOPHILS # 0.4 10^3/ul (0.0-0.5); EOSINOPHILS % 7.6 % (0.0-7.0); HEMATOCRIT 29.9 % (42.0-52.0); HEMOGLOBIN 9.8 g/dl (14.0-18.0); LYMPHOCYTES # 0.6 10^3/ul (0.8-2.9); LYMPHOCYTES % 13.4 % (15.0-51.0); MEAN CORPUSCULAR HEMOGLOBIN 28.7 pg (29.0-33.0); MEAN CORPUSCULAR HGB CONC 32.8 g/dl (32.0-37.0); MEAN CORPUSCULAR VOLUME 87.7 fl (82.0-101.0); MONOCYTE # 0.7 10^3/ul (0.3-0.9); MONOCYTES % 14.3 % (0.0-11.0); NEUTROPHIL # 2.9 10^3/ul (1.6-7.5); NEUTROPHILS % 62.8 % (39.0-77.0); PLATELET COUNT 161 10^3/UL (140-415); RED BLOOD COUNT 3.41 10^6/ul (4.70-6.10); RED CELL DISTRIBUTION WIDTH 15.9 % (11.5-14.5)
[2018-11-23 08:07] LABS: WHITE BLOOD COUNT 4.6 10^3/ul (4.8-10.8)
[2018-11-23] MEDS: DEXTROSE 50% 50 ML SYRINGE IV (08:17)
[2018-11-23] MEDS: FAMOTIDINE 20 MG TAB PO (08:48)
[2018-11-23] MEDS: CHOLECALCIFEROL 2,000 UNIT CAP PO (08:49)
[2018-11-23] MEDS: MULTIVIT/CA CARB/B CMPLX/FA TAB PO (08:49)
[2018-11-23] MEDS: LINAGLIPTIN 5 MG TABLET PO (08:49)
[2018-11-23] MEDS: BENAZEPRIL 20 MG TAB PO ×2 (08:49→21:00)
[2018-11-23] MEDS: morphine 2 MG INJ IV (10:20)
[2018-11-23] MEDS: DEXTROSE 5%-0.45% NACL 1,000 ML IV ×2 (10:33→21:37)
[2018-11-23 11:04] LABS: IMMEDIATE SPIN CROSSMATCH 1 2
[2018-11-23] MEDS ORDERED: POLYMYXIN/BACITRACIN 1L IRRIG (13:18)
[2018-11-23 13:47] LABS: POTASSIUM 4.5 mmol/L (3.5-5.1)
[2018-11-23] MEDS ORDERED: ONDANSETRON 4 MG INJ IV (14:30)
[2018-11-23] MEDS ORDERED: ZOLPIDEM 5 MG TAB PO (14:30)
[2018-11-23] MEDS ORDERED: HYDROmorphONE 0.5 MG/0.5 ML SYG IV ×2 (14:30)
[2018-11-23] MEDS ORDERED: KETOROLAC 30 MG INJ IV (14:30)
[2018-11-23] MEDS ORDERED: NALOXONE (0.4 MG/ML) INJ IV (14:30)
[2018-11-23] MEDS ORDERED: LIDOCAINE 1% (MDV) 20 ML INJ (14:32)
[2018-11-23] MEDS ORDERED: ETOMIDATE 20 MG INJ (14:32)
[2018-11-23] MEDS ORDERED: morphine SULFATE/PF (10 MG/10 ML) INJ (14:34)
[2018-11-23] MEDS ORDERED: MIDAZOLAM 1 MG/ML 2 ML INJ (14:35)
[2018-11-23] MEDS ORDERED: DESFLURANE 15 MIN (15:30)
[2018-11-23] MEDS ORDERED: CEFAZOLIN 1 GM INJ (15:30)
[2018-11-23] MEDS ORDERED: ONDANSETRON 4 MG INJ (16:57)
[2018-11-23] MEDS ORDERED: DEXAMETHASONE 4 MG/ML 5 ML INJ (16:57)
[2018-11-23] MEDS ORDERED: ROPIVACAINE 0.5 % 30 ML VIAL (16:59)
[2018-11-23] MEDS ORDERED: SUGAMMADEX SODIUM 200 MG/2 ML VIAL IV (17:15)
[2018-11-23] MEDS ORDERED: KETOROLAC 30 MG INJ (17:16)
[2018-11-23] MEDS ORDERED: NACL 0.9% 3 ML SYG IV (17:30)
[2018-11-23] MEDS: CEFAZOLIN 2 GM/50 ML (PMX) 50 ML IVPB (19:03)
[2018-11-23 19:36] LABS: ADD UMIC YES; UR ASCORBIC ACID NEGATIVE (NEGATIVE); UR BACTERIA FEW /HPF (NONE SEEN); UR BILIRUBIN (Dip) NEGATIVE (NEGATIVE); UR BLOOD (Dip) 1+ mg/dL (NEGATIVE); UR CLARITY CLOUDY (CLEAR); UR COLOR AMBER (YELLOW); UR GLUCOSE (Dip) 1+ mg/dL (NEGATIVE); UR KETONES (Dip) NEGATIVE (NEGATIVE); UR LEUKOCYTE ESTERASE (Dip) NEGATIVE Leu/ul (NEGATIVE); UR NITRITE (Dip) NEGATIVE (NEGATIVE); UR RBC 4 /HPF (0-5); UR SPECIFIC GRAVITY (Dip) 1.015 (1.003-1.030); UR SQUAMOUS EPITHELIAL CELL MANY /HPF (FEW); UR TOTAL PROTEIN (Dip) 3+ mg/dl (NEGATIVE); UR UROBILINOGEN (Dip) NEGATIVE (NEGATIVE); UR WBC 11 /HPF (0-5)
[2018-11-23] MEDS: SOD CHLORIDE 0.9% 1,000 ML IV (20:21)
[2018-11-23 20:25] LABS: ADD MAN DIFF? NO
[2018-11-23 20:27] LABS: WHITE BLOOD COUNT 8.1 10^3/ul (4.8-10.8)
[2018-11-23 20:27] LABS: ABNORMAL IP MESSAGE 1; BASOPHILS % 0.4 % (0.0-2.0); EOSINOPHILS # 0.1 10^3/ul (0.0-0.5); EOSINOPHILS % 0.6 % (0.0-7.0); HEMATOCRIT 31.7 % (42.0-52.0); HEMOGLOBIN 10.4 g/dl (14.0-18.0); LYMPHOCYTES # 0.3 10^3/ul (0.8-2.9); LYMPHOCYTES % 3.6 % (15.0-51.0); MEAN CORPUSCULAR HEMOGLOBIN 28.4 pg (29.0-33.0); MEAN CORPUSCULAR HGB CONC 32.8 g/dl (32.0-37.0); MEAN CORPUSCULAR VOLUME 86.6 fl (82.0-101.0); MEAN PLATELET VOLUME 9.5 fl (7.4-10.4); MONOCYTE # 0.3 10^3/ul (0.3-0.9); MONOCYTES % 3.1 % (0.0-11.0); NEUTROPHIL # 7.5 10^3/ul (1.6-7.5); NEUTROPHILS % 91.7 % (39.0-77.0); PLATELET COUNT 155 10^3/UL (140-415); POSITIVE DIFF @See below; RED BLOOD COUNT 3.66 10^6/ul (4.70-6.10); RED CELL DISTRIBUTION WIDTH 16.1 % (11.5-14.5)
[2018-11-23] MEDS: DIPHENHYDRAMINE 50 MG INJ IV (21:27)
[2018-11-23] MEDS: INSULIN GLARGINE [LANTus] (100 UNITS/ML) SYG SC (21:31)
[2018-11-24] MEDS: INSULIN ASPART [NOVOLOG] 3 ML PEN SC ×9 (01:15→21:00)
[2018-11-24] MEDS: CEFAZOLIN 2 GM/50 ML (PMX) 50 ML IVPB ×2 (02:17→10:30)
[2018-11-24] MEDS: LEVOTHYROXINE 100 MCG TAB PO (06:21)
[2018-11-24] MEDS: ACCU-CHEK XX ×6 (07:48→20:40)
[2018-11-24] MEDS: SEVELAMER CARBONATE 0.8 GM PKT PO ×3 (08:01→17:17)
[2018-11-24] MEDS: LINAGLIPTIN 5 MG TABLET PO (08:16)
[2018-11-24] MEDS: MULTIVIT/CA CARB/B CMPLX/FA TAB PO (08:16)
[2018-11-24] MEDS: FAMOTIDINE 20 MG TAB PO (08:16)
[2018-11-24] MEDS: CHOLECALCIFEROL 2,000 UNIT CAP PO (08:16)
[2018-11-24] MEDS: BENAZEPRIL 20 MG TAB PO ×2 (08:16→20:40)
[2018-11-24] MEDS: ENOXAPARIN 30 MG/0.3 ML SYG SC (08:25)
[2018-11-24] MEDS: DEXTROSE 5%-0.45% NACL 1,000 ML IV (10:50)
[2018-11-24] MEDS ORDERED: oxyCODONE 5 MG TAB PO (14:30)
[2018-11-24] MEDS ORDERED: HYDROmorphONE 1 MG/ML SYG IV (14:30)
[2018-11-24] MEDS: INSULIN GLARGINE [LANTus] (100 UNITS/ML) SYG SC (20:42)
[2018-11-24] MEDS: morphine 2 MG INJ IV (21:26)
[2018-11-25] MEDS: DEXTROSE 5%-0.45% NACL 1,000 ML IV ×3 (00:10→22:53)
[2018-11-25] MEDS ORDERED: CEPASTAT LOZENGE MT (01:00)
[2018-11-25] MEDS: LEVOTHYROXINE 100 MCG TAB PO (06:29)
[2018-11-25] MEDS: ACCU-CHEK XX ×7 (07:25→20:20)
[2018-11-25] MEDS: SEVELAMER CARBONATE 0.8 GM PKT PO ×3 (07:42→17:23)
[2018-11-25] MEDS: INSULIN ASPART [NOVOLOG] 3 ML PEN SC ×7 (07:42→21:00)
[2018-11-25] MEDS: MULTIVIT/CA CARB/B CMPLX/FA TAB PO (09:26)
[2018-11-25] MEDS: CHOLECALCIFEROL 2,000 UNIT CAP PO (09:27)
[2018-11-25] MEDS: LINAGLIPTIN 5 MG TABLET PO (09:27)
[2018-11-25] MEDS: BENAZEPRIL 20 MG TAB PO ×2 (09:27→21:32)
[2018-11-25] MEDS: FAMOTIDINE 20 MG TAB PO (09:27)
[2018-11-25] MEDS: ENOXAPARIN 30 MG/0.3 ML SYG SC (09:40)
[2018-11-25 19:07] LABS: IRON 48 ug/dl (35-150)
[2018-11-25 19:16] LABS: % IRON SATURATION 25 % SAT (22-52); TOTAL IRON BINDING CAPACITY 190 ug/dl (241-421)
[2018-11-25] MEDS: INSULIN GLARGINE [LANTus] (100 UNITS/ML) SYG SC (21:34)
[2018-11-26 06:02] LABS: ADD MAN DIFF? NO
[2018-11-26 06:05] LABS: WHITE BLOOD COUNT 4.6 10^3/ul (4.8-10.8)
[2018-11-26 06:05] LABS: ABNORMAL IP MESSAGE 1; BASOPHILS % 0.9 % (0.0-2.0); EOSINOPHILS # 0.2 10^3/ul (0.0-0.5); EOSINOPHILS % 5.2 % (0.0-7.0); HEMATOCRIT 24.9 % (42.0-52.0); HEMOGLOBIN 8.1 g/dl (14.0-18.0); LYMPHOCYTES # 0.6 10^3/ul (0.8-2.9); LYMPHOCYTES % 12.1 % (15.0-51.0); MEAN CORPUSCULAR HEMOGLOBIN 28.2 pg (29.0-33.0); MEAN CORPUSCULAR HGB CONC 32.5 g/dl (32.0-37.0); MEAN CORPUSCULAR VOLUME 86.8 fl (82.0-101.0); MEAN PLATELET VOLUME 9.3 fl (7.4-10.4); MONOCYTE # 0.6 10^3/ul (0.3-0.9); MONOCYTES % 11.9 % (0.0-11.0); NEUTROPHIL # 3.2 10^3/ul (1.6-7.5); NEUTROPHILS % 69.5 % (39.0-77.0); PLATELET COUNT 141 10^3/UL (140-415); POSITIVE DIFF @See below; RED BLOOD COUNT 2.87 10^6/ul (4.70-6.10); RED CELL DISTRIBUTION WIDTH 15.7 % (11.5-14.5)
[2018-11-26 06:27] LABS: INR 1.16; PROTIME 14.9 Sec (11.9-14.9); PT RATIO 1.2
[2018-11-26] MEDS: LEVOTHYROXINE 100 MCG TAB PO (06:44)
[2018-11-26 07:11] LABS: ALANINE AMINOTRANSFERASE 11 IU/L (13-69); ALBUMIN 3.3 g/dl (3.3-4.9); ALKALINE PHOSPHATASE 111 IU/L (42-121); ANION GAP 11 (5-13); ASPARTATE AMINO TRANSFERASE 34 IU/L (15-46); BILIRUBIN,INDIRECT 0.2 mg/dl (0-1.1); BILIRUBIN,TOTAL 0.2 mg/dl (0.2-1.3); BLOOD UREA NITROGEN 50 mg/dl (7-20); CALCIUM 7.7 mg/dl (8.4-10.2); CARBON DIOXIDE 24 mmol/L (21-31); CHLORIDE 102 mmol/L (97-110); CREATININE 7.76 mg/dl (0.61-1.24); GLUCOSE 139 mg/dl (70-220); POTASSIUM 3.9 mmol/L (3.5-5.1); SODIUM 137 mmol/L (135-144); TOTAL PROTEIN 6.3 g/dl (6.1-8.1)
[2018-11-26 07:22] LABS: MAGNESIUM 2.2 mg/dl (1.7-2.5)
[2018-11-26] MEDS: ACCU-CHEK XX ×6 (07:32→20:00)
[2018-11-26] MEDS: SEVELAMER CARBONATE 0.8 GM PKT PO ×3 (07:33→17:10)
[2018-11-26] MEDS: INSULIN ASPART [NOVOLOG] 3 ML PEN SC ×7 (07:53→21:00)
[2018-11-26] MEDS ORDERED: ALBUMIN HUMAN 25% 100 ML IV (08:30)
[2018-11-26] MEDS: FAMOTIDINE 20 MG TAB PO (09:00)
[2018-11-26] MEDS: LINAGLIPTIN 5 MG TABLET PO (09:00)
[2018-11-26] MEDS: BENAZEPRIL 20 MG TAB PO ×2 (09:00→20:43)
[2018-11-26] MEDS: ENOXAPARIN 30 MG/0.3 ML SYG SC (09:00)
[2018-11-26] MEDS: CHOLECALCIFEROL 2,000 UNIT CAP PO (09:00)
[2018-11-26] MEDS: MULTIVIT/CA CARB/B CMPLX/FA TAB PO (09:00)
[2018-11-26] MEDS: morphine 2 MG INJ IV (11:47)
[2018-11-26] MEDS: BALSAM PERU/CASTOR OIL 60 GM TUBE TOP (14:59)
[2018-11-26] MEDS: DEXTROSE 5%-0.45% NACL 1,000 ML IV (16:04)
[2018-11-26] MEDS: INSULIN GLARGINE [LANTus] (100 UNITS/ML) SYG SC (20:59)
[2018-11-27] MEDS: morphine 2 MG INJ IV (00:08)
[2018-11-27] MEDS: BALSAM PERU/CASTOR OIL 60 GM TUBE TOP ×3 (04:57→20:22)
[2018-11-27] MEDS: LEVOTHYROXINE 100 MCG TAB PO (06:48)
[2018-11-27] MEDS: INSULIN ASPART [NOVOLOG] 3 ML PEN SC ×7 (07:55→20:22)
[2018-11-27] MEDS: ACCU-CHEK XX ×6 (08:05→20:22)
[2018-11-27] MEDS: FAMOTIDINE 20 MG TAB PO (08:38)
[2018-11-27] MEDS: LINAGLIPTIN 5 MG TABLET PO (08:38)
[2018-11-27] MEDS: CHOLECALCIFEROL 2,000 UNIT CAP PO (08:38)
[2018-11-27] MEDS: MULTIVIT/CA CARB/B CMPLX/FA TAB PO (08:38)
[2018-11-27] MEDS: BENAZEPRIL 20 MG TAB PO ×2 (08:38→20:17)
[2018-11-27] MEDS: SEVELAMER CARBONATE 0.8 GM PKT PO ×3 (08:39→17:11)
[2018-11-27] MEDS: ENOXAPARIN 30 MG/0.3 ML SYG SC (08:40)
[2018-11-27] MEDS ORDERED: EPOETIN ALFA-EPBX (ESRD) 3,000 UNIT/ML VIAL SC (14:00)
[2018-11-27 14:09] LABS: ADD MAN DIFF? NO
[2018-11-27 14:10] LABS: ABNORMAL IP MESSAGE 1; BASOPHIL # 0.1 10^3/ul (0.0-0.1); EOSINOPHILS # 0.3 10^3/ul (0.0-0.5); EOSINOPHILS % 5.7 % (0.0-7.0); HEMATOCRIT 27.2 % (42.0-52.0); HEMOGLOBIN 8.8 g/dl (14.0-18.0); LYMPHOCYTES # 0.6 10^3/ul (0.8-2.9); LYMPHOCYTES % 10.7 % (15.0-51.0); MEAN CORPUSCULAR HEMOGLOBIN 28.2 pg (29.0-33.0); MEAN CORPUSCULAR HGB CONC 32.4 g/dl (32.0-37.0); MEAN CORPUSCULAR VOLUME 87.2 fl (82.0-101.0); MEAN PLATELET VOLUME 9.3 fl (7.4-10.4); MONOCYTE # 0.6 10^3/ul (0.3-0.9); MONOCYTES % 11.6 % (0.0-11.0); NEUTROPHIL # 3.7 10^3/ul (1.6-7.5); NEUTROPHILS % 70.6 % (39.0-77.0); PLATELET COUNT 167 10^3/UL (140-415); POSITIVE DIFF @See below; RED BLOOD COUNT 3.12 10^6/ul (4.70-6.10); RED CELL DISTRIBUTION WIDTH 15.5 % (11.5-14.5)
[2018-11-27 14:10] LABS: WHITE BLOOD COUNT 5.2 10^3/ul (4.8-10.8)
[2018-11-27] MEDS: oxyCODONE 5 MG TAB PO (14:21)
[2018-11-27] MEDS: AMOXICILLIN/CLAV 875 MG TAB PO ×2 (15:05→20:10)
[2018-11-27] MEDS: EPOETIN ALFA-EPBX (ESRD) 10,000 UNIT/ML VIAL SC (15:06)
[2018-11-27] MEDS: INSULIN GLARGINE [LANTus] (100 UNITS/ML) SYG SC (20:21)
[2018-11-28] MEDS: LEVOTHYROXINE 100 MCG TAB PO (06:02)
[2018-11-28] MEDS: INSULIN ASPART [NOVOLOG] 3 ML PEN SC ×7 (07:55→21:00)
[2018-11-28] MEDS: ACCU-CHEK XX ×6 (07:55→19:55)
[2018-11-28] MEDS: ENOXAPARIN 30 MG/0.3 ML SYG SC (08:00)
[2018-11-28] MEDS: SEVELAMER CARBONATE 0.8 GM PKT PO ×3 (08:15→17:08)
[2018-11-28] MEDS: MULTIVIT/CA CARB/B CMPLX/FA TAB PO (08:15)
[2018-11-28] MEDS: AMOXICILLIN/CLAV 875 MG TAB PO ×2 (08:15→21:07)
[2018-11-28] MEDS: LINAGLIPTIN 5 MG TABLET PO (08:15)
[2018-11-28] MEDS: FAMOTIDINE 20 MG TAB PO (08:15)
[2018-11-28] MEDS: CHOLECALCIFEROL 2,000 UNIT CAP PO (08:15)
[2018-11-28] MEDS: BENAZEPRIL 20 MG TAB PO ×2 (08:16→21:07)
[2018-11-28] MEDS: BALSAM PERU/CASTOR OIL 60 GM TUBE TOP ×2 (08:18→21:20)
[2018-11-28] MEDS: INSULIN GLARGINE [LANTus] (100 UNITS/ML) SYG SC (21:19)
== END 2018-11-28 21:55 | DRG 480 ==
LOC: TEL 11-23 18:20 → PP2 23:12 → E/R 19:41
PROC: 0QS706Z Reposition Left Upper Femur with Intramedullary Internal Fixation Device, Open Approach (ICD-10-PCS; principal; 2018-11-23 14:00)
DX: S72.142A Displaced intertrochanteric fracture of left femur, initial encounter for closed fracture (principal); N18.6 End stage renal disease; N25.81 Secondary hyperparathyroidism of renal origin; I12.0 Hypertensive chronic kidney disease with stage 5 chronic kidney disease or end stage renal disease; E11.22 Type 2 diabetes mellitus with diabetic chronic kidney disease; E11.51 Type 2 diabetes mellitus with diabetic peripheral angiopathy without gangrene; E11.42 Type 2 diabetes mellitus with diabetic polyneuropathy; E78.5 Hyperlipidemia, unspecified; E11.319 Type 2 diabetes mellitus with unspecified diabetic retinopathy without macular edema; E03.9 Hypothyroidism, unspecified; N40.0 Benign prostatic hyperplasia without lower urinary tract symptoms; D63.1 Anemia in chronic kidney disease; E11.3299 Type 2 diabetes mellitus with mild nonproliferative diabetic retinopathy without macular edema, unspecified eye; Y92.011 Dining room of single-family (private) house as the place of occurrence of the external cause; W01.0XXA Fall on same level from slipping, tripping and stumbling without subsequent striking against object, initial encounter; Z99.2 Dependence on renal dialysis; Z89.411 Acquired absence of right great toe
CPT/HCPCS: 36430; 72170; 73500; 73510; 73530; 73550; 74176; 80053; 81001; 82150; 82962; 83036; 83540; 83690; 83735; 84100; 84132; 84484; 85025; 85610; 85730; 86644; 86850; 86900; 86901; 86920; 87086; 87340; 90935; 93005; 96374; 96375; 97110; 97116; 97162; 97530; 99285-25

== ENCOUNTER 2018-11-28 23:08 | Inpatient (IN) | payer MEDICARE, OTHER ==
[2018-11-29] MEDS ORDERED: PENDING SANTYL ORDER FOR WOUND CARE XX
[2018-11-29] MEDS ORDERED: ACETAMINOPHEN 325 MG TAB PO
[2018-11-29] MEDS ORDERED: BISACODYL 10 MG SUPP PR
[2018-11-29] MEDS ORDERED: ONDANSETRON 4 MG INJ IV (01:00)
[2018-11-29] MEDS ORDERED: GLUCOSE GEL 15 GRAM TUBE PO ×2 (01:30)
[2018-11-29] MEDS ORDERED: GLUCAGON 1 MG INJ IM (01:30)
[2018-11-29] MEDS ORDERED: DEXTROSE 50% 50 ML SYRINGE IV ×2 (01:30)
[2018-11-29] MEDS ORDERED: ACCU-CHEK XX ×2 (02:00)
[2018-11-29] MEDS: ACCU-CHEK XX ×8 (02:00→21:00)
[2018-11-29] MEDS: LEVOTHYROXINE 100 MCG TAB PO (06:20)
[2018-11-29] MEDS: oxyCODONE 5 MG TAB PO ×3 (07:00→19:13)
[2018-11-29] MEDS ORDERED: INSULIN ASPART [NOVOLOG] 3 ML PEN SC (07:35)
[2018-11-29 07:51] LABS: ADD MAN DIFF? NO
[2018-11-29] MEDS: HYDROmorphONE 1 MG/ML SYG IV ×4 (07:51→17:24)
[2018-11-29] MEDS: SEVELAMER CARBONATE 800 MG TABLET PO ×3 (07:52→17:35)
[2018-11-29 07:55] LABS: WHITE BLOOD COUNT 5.6 10^3/ul (4.8-10.8)
[2018-11-29 07:55] LABS: ABNORMAL IP MESSAGE 1; BASOPHIL # 0.1 10^3/ul (0.0-0.1); BASOPHILS % 0.9 % (0.0-2.0); EOSINOPHILS # 0.3 10^3/ul (0.0-0.5); EOSINOPHILS % 5.7 % (0.0-7.0); HEMATOCRIT 25.6 % (42.0-52.0); HEMOGLOBIN 8.3 g/dl (14.0-18.0); LYMPHOCYTES # 0.6 10^3/ul (0.8-2.9); LYMPHOCYTES % 10.2 % (15.0-51.0); MEAN CORPUSCULAR HEMOGLOBIN 28.3 pg (29.0-33.0); MEAN CORPUSCULAR HGB CONC 32.4 g/dl (32.0-37.0); MEAN CORPUSCULAR VOLUME 87.4 fl (82.0-101.0); MONOCYTE # 0.7 10^3/ul (0.3-0.9); MONOCYTES % 12.1 % (0.0-11.0); NEUTROPHIL # 3.9 10^3/ul (1.6-7.5); NEUTROPHILS % 69.8 % (39.0-77.0); PLATELET COUNT 202 10^3/UL (140-415); POSITIVE DIFF @See below; RED BLOOD COUNT 2.93 10^6/ul (4.70-6.10); RED CELL DISTRIBUTION WIDTH 15.3 % (11.5-14.5)
[2018-11-29] MEDS: INSULIN ASPART [NOVOLOG] 3 ML PEN SC ×3 (07:59→17:35)
[2018-11-29 08:22] LABS: ALANINE AMINOTRANSFERASE 15 IU/L (13-69); ALBUMIN 3.4 g/dl (3.3-4.9); ALBUMIN/GLOBULIN RATIO 1.13; ALKALINE PHOSPHATASE 141 IU/L (42-121); ANION GAP 12 (5-13); ASPARTATE AMINO TRANSFERASE 35 IU/L (15-46); BILIRUBIN,INDIRECT 0.4 mg/dl (0-1.1); BILIRUBIN,TOTAL 0.4 mg/dl (0.2-1.3); BLOOD UREA NITROGEN 62 mg/dl (7-20); CALCIUM 8.6 mg/dl (8.4-10.2); CARBON DIOXIDE 25 mmol/L (21-31); CHLORIDE 98 mmol/L (97-110); CREATININE 8.04 mg/dl (0.61-1.24); GLUCOSE 120 mg/dl (70-220); SODIUM 135 mmol/L (135-144); TOTAL PROTEIN 6.4 g/dl (6.1-8.1)
[2018-11-29] MEDS: DOCUSATE SODIUM 100 MG CAP PO ×2 (09:00→21:05)
[2018-11-29] MEDS: BALSAM PERU/CASTOR OIL 60 GM TUBE TOP ×2 (09:00→22:09)
[2018-11-29] MEDS: BENAZEPRIL 40 MG TAB PO ×2 (09:00→21:06)
[2018-11-29] MEDS ORDERED: DICLOFENAC SODIUM 1% GEL 100 GM TUBE TP (09:00)
[2018-11-29] MEDS: MULTIVIT/CA CARB/B CMPLX/FA TAB PO (09:00)
[2018-11-29 09:30] LABS: HEPATITIS B SURFACE ANTIGEN NEGATIVE (NEGATIVE)
[2018-11-29] MEDS: CHOLECALCIFEROL 2,000 UNIT CAP PO (09:37)
[2018-11-29] MEDS: AMOXICILLIN/CLAV 875 MG TAB PO ×2 (09:37→21:05)
[2018-11-29] MEDS: LINAGLIPTIN 5 MG TABLET PO ×2 (09:37→09:47)
[2018-11-29] MEDS: ASPIRIN (EC) 81 MG TAB PO (09:37)
[2018-11-29] MEDS: FAMOTIDINE 20 MG TAB PO (09:37)
[2018-11-29] MEDS: ENOXAPARIN 30 MG/0.3 ML SYG SC (09:54)
[2018-11-29] MEDS: SENNA TAB PO (21:05)
[2018-11-29] MEDS: HEPARIN 5,000 UNIT/1 ML VIAL SC (21:11)
[2018-11-29] MEDS: INSULIN GLARGINE [LANTus] (100 UNITS/ML) SYG SC (21:11)
[2018-11-30] MEDS: ACCU-CHEK XX ×8 (02:00→21:36)
[2018-11-30] MEDS: LEVOTHYROXINE 100 MCG TAB PO (06:05)
[2018-11-30] MEDS: INSULIN ASPART [NOVOLOG] 3 ML PEN SC ×3 (08:41→17:30)
[2018-11-30] MEDS: SEVELAMER CARBONATE 800 MG TABLET PO ×3 (08:42→17:29)
[2018-11-30] MEDS: MULTIVIT/CA CARB/B CMPLX/FA TAB PO (08:42)
[2018-11-30] MEDS: HEPARIN 5,000 UNIT/1 ML VIAL SC ×2 (08:42→20:18)
[2018-11-30] MEDS: AMOXICILLIN/CLAV 875 MG TAB PO ×2 (08:43→20:17)
[2018-11-30] MEDS: LINAGLIPTIN 5 MG TABLET PO (08:43)
[2018-11-30] MEDS: FAMOTIDINE 20 MG TAB PO (08:43)
[2018-11-30] MEDS: DOCUSATE SODIUM 100 MG CAP PO ×2 (08:43→20:16)
[2018-11-30] MEDS: ASPIRIN (EC) 81 MG TAB PO (08:43)
[2018-11-30] MEDS: BENAZEPRIL 40 MG TAB PO ×2 (08:43→20:17)
[2018-11-30] MEDS: BALSAM PERU/CASTOR OIL 60 GM TUBE TOP ×2 (08:56→20:19)
[2018-11-30] MEDS: CHOLECALCIFEROL 2,000 UNIT CAP PO (09:01)
[2018-11-30] MEDS: oxyCODONE 5 MG TAB PO (14:29)
[2018-11-30] MEDS: SENNA TAB PO (20:17)
[2018-11-30] MEDS: INSULIN GLARGINE [LANTus] (100 UNITS/ML) SYG SC (20:19)
[2018-12-01] MEDS: ACCU-CHEK XX ×6 (02:00→21:32)
[2018-12-01] MEDS: LEVOTHYROXINE 100 MCG TAB PO (06:30)
[2018-12-01] MEDS: SEVELAMER CARBONATE 800 MG TABLET PO ×3 (07:44→17:57)
[2018-12-01] MEDS: LINAGLIPTIN 5 MG TABLET PO (07:44)
[2018-12-01] MEDS: INSULIN ASPART [NOVOLOG] 3 ML PEN SC ×3 (07:48→17:35)
[2018-12-01] MEDS: BENAZEPRIL 40 MG TAB PO ×2 (09:00→21:20)
[2018-12-01] MEDS: oxyCODONE 5 MG TAB PO (09:02)
[2018-12-01] MEDS: AMOXICILLIN/CLAV 875 MG TAB PO ×2 (09:02→21:20)
[2018-12-01] MEDS: FAMOTIDINE 20 MG TAB PO (09:03)
[2018-12-01] MEDS: ASPIRIN (EC) 81 MG TAB PO (09:03)
[2018-12-01] MEDS: CHOLECALCIFEROL 2,000 UNIT CAP PO (09:03)
[2018-12-01] MEDS: MULTIVIT/CA CARB/B CMPLX/FA TAB PO (09:03)
[2018-12-01] MEDS: DOCUSATE SODIUM 100 MG CAP PO ×2 (09:03→21:20)
[2018-12-01] MEDS: HEPARIN 5,000 UNIT/1 ML VIAL SC ×2 (09:10→21:31)
[2018-12-01] MEDS: BALSAM PERU/CASTOR OIL 60 GM TUBE TOP ×2 (09:11→21:21)
[2018-12-01] MEDS: DICLOFENAC SODIUM 1% GEL 100 GM TUBE TP (17:59)
[2018-12-01] MEDS: HYDROmorphONE 1 MG/ML SYG IM (18:46)
[2018-12-01] MEDS: SENNA TAB PO (21:20)
[2018-12-01] MEDS: INSULIN GLARGINE [LANTus] (100 UNITS/ML) SYG SC (21:32)
[2018-12-02] MEDS: ACCU-CHEK XX ×5 (02:00→20:57)
[2018-12-02] MEDS: LACTULOSE 30ML CUP PO (02:22)
[2018-12-02] MEDS: LEVOTHYROXINE 100 MCG TAB PO (06:27)
[2018-12-02] MEDS: INSULIN ASPART [NOVOLOG] 3 ML PEN SC ×3 (07:35→17:28)
[2018-12-02] MEDS: SEVELAMER CARBONATE 800 MG TABLET PO ×3 (07:43→17:27)
[2018-12-02] MEDS: GLUCOSE GEL 15 GRAM TUBE BUCCAL (08:03)
[2018-12-02] MEDS: AMOXICILLIN/CLAV 875 MG TAB PO ×2 (08:20→20:49)
[2018-12-02] MEDS: DOCUSATE SODIUM 100 MG CAP PO ×2 (08:20→20:49)
[2018-12-02] MEDS: ASPIRIN (EC) 81 MG TAB PO (08:21)
[2018-12-02] MEDS: FAMOTIDINE 20 MG TAB PO (08:21)
[2018-12-02] MEDS: BENAZEPRIL 40 MG TAB PO ×2 (08:21→20:50)
[2018-12-02] MEDS: CHOLECALCIFEROL 2,000 UNIT CAP PO (08:21)
[2018-12-02] MEDS: MULTIVIT/CA CARB/B CMPLX/FA TAB PO (08:21)
[2018-12-02] MEDS: HEPARIN 5,000 UNIT/1 ML VIAL SC ×2 (08:22→20:56)
[2018-12-02] MEDS: LINAGLIPTIN 5 MG TABLET PO (09:00)
[2018-12-02] MEDS: BALSAM PERU/CASTOR OIL 60 GM TUBE TOP ×2 (09:45→20:51)
[2018-12-02] MEDS: HYDROmorphONE 1 MG/ML SYG IM ×3 (09:52→18:27)
[2018-12-02] MEDS: DICLOFENAC SODIUM 1% GEL 100 GM TUBE TP ×2 (13:58→20:50)
[2018-12-02] MEDS: SENNA TAB PO (20:49)
[2018-12-02] MEDS: INSULIN GLARGINE [LANTus] (100 UNITS/ML) SYG SC (20:55)
[2018-12-03] MEDS: ACCU-CHEK XX ×6 (02:00→21:00)
[2018-12-03] MEDS: LEVOTHYROXINE 100 MCG TAB PO (06:25)
[2018-12-03] MEDS: LINAGLIPTIN 5 MG TABLET PO (08:58)
[2018-12-03] MEDS: oxyCODONE 5 MG TAB PO (08:59)
[2018-12-03] MEDS: BENAZEPRIL 40 MG TAB PO ×2 (09:00→21:15)
[2018-12-03] MEDS: SEVELAMER CARBONATE 800 MG TABLET PO ×3 (09:00→17:35)
[2018-12-03] MEDS: INSULIN ASPART [NOVOLOG] 3 ML PEN SC ×5 (09:01→17:35)
[2018-12-03] MEDS: CHOLECALCIFEROL 2,000 UNIT CAP PO (09:03)
[2018-12-03] MEDS: HEPARIN 5,000 UNIT/1 ML VIAL SC (09:03)
[2018-12-03] MEDS: AMOXICILLIN/CLAV 875 MG TAB PO ×2 (09:04→21:14)
[2018-12-03] MEDS: FAMOTIDINE 20 MG TAB PO (09:04)
[2018-12-03] MEDS: ASPIRIN (EC) 81 MG TAB PO (09:04)
[2018-12-03] MEDS: MULTIVIT/CA CARB/B CMPLX/FA TAB PO (09:04)
[2018-12-03] MEDS: DOCUSATE SODIUM 100 MG CAP PO ×2 (09:04→21:15)
[2018-12-03] MEDS: BALSAM PERU/CASTOR OIL 60 GM TUBE TOP ×2 (09:05→21:16)
[2018-12-03] MEDS: DICLOFENAC SODIUM 1% GEL 100 GM TUBE TP ×4 (09:06→21:16)
[2018-12-03] MEDS: INSULIN GLARGINE [LANTus] (100 UNITS/ML) SYG SC (21:14)
[2018-12-03] MEDS: SENNA TAB PO (21:15)
[2018-12-04] MEDS: HEPARIN 5,000 UNIT/1 ML VIAL SC ×3 (00:50→20:37)
[2018-12-04] MEDS: ACCU-CHEK XX ×5 (02:00→20:40)
[2018-12-04] MEDS: LEVOTHYROXINE 100 MCG TAB PO (06:27)
[2018-12-04] MEDS: HYDROmorphONE 1 MG/ML SYG IM ×5 (07:52→17:28)
[2018-12-04] MEDS: INSULIN ASPART [NOVOLOG] 3 ML PEN SC ×3 (07:58→17:36)
[2018-12-04] MEDS: SEVELAMER CARBONATE 800 MG TABLET PO ×3 (07:59→17:27)
[2018-12-04 08:50] LABS: ADD MAN DIFF? NO
[2018-12-04 08:58] LABS: WHITE BLOOD COUNT 4.7 10^3/ul (4.8-10.8)
[2018-12-04 08:58] LABS: BASOPHIL # 0.1 10^3/ul (0.0-0.1); BASOPHILS % 1.1 % (0.0-2.0); EOSINOPHILS # 0.4 10^3/ul (0.0-0.5); EOSINOPHILS % 7.7 % (0.0-7.0); HEMATOCRIT 27.2 % (42.0-52.0); HEMOGLOBIN 8.5 g/dl (14.0-18.0); LYMPHOCYTES # 0.7 10^3/ul (0.8-2.9); LYMPHOCYTES % 14.8 % (15.0-51.0); MEAN CORPUSCULAR HEMOGLOBIN 27.7 pg (29.0-33.0); MEAN CORPUSCULAR HGB CONC 31.3 g/dl (32.0-37.0); MEAN CORPUSCULAR VOLUME 88.6 fl (82.0-101.0); MEAN PLATELET VOLUME 9.5 fl (7.4-10.4); MONOCYTE # 0.6 10^3/ul (0.3-0.9); NEUTROPHILS % 63.5 % (39.0-77.0); PLATELET COUNT 246 10^3/UL (140-415); RED BLOOD COUNT 3.07 10^6/ul (4.70-6.10)
[2018-12-04 09:38] LABS: ALBUMIN 4.1 g/dl (3.3-4.9); ANION GAP 13 (5-13); BLOOD UREA NITROGEN 39 mg/dl (7-20); CALCIUM 9.3 mg/dl (8.4-10.2); CARBON DIOXIDE 29 mmol/L (21-31); CHLORIDE 97 mmol/L (97-110); CREATININE 5.66 mg/dl (0.61-1.24); GLUCOSE 138 mg/dl (70-220); PHOSPHORUS 4.2 mg/dl (2.5-4.9); POTASSIUM 4.5 mmol/L (3.5-5.1); SODIUM 139 mmol/L (135-144)
[2018-12-04] MEDS: CHOLECALCIFEROL 2,000 UNIT CAP PO (10:12)
[2018-12-04] MEDS: LINAGLIPTIN 5 MG TABLET PO (10:12)
[2018-12-04] MEDS: ASPIRIN (EC) 81 MG TAB PO (10:13)
[2018-12-04] MEDS: FAMOTIDINE 20 MG TAB PO (10:14)
[2018-12-04] MEDS: DOCUSATE SODIUM 100 MG CAP PO ×2 (10:15→20:38)
[2018-12-04] MEDS: AMOXICILLIN/CLAV 875 MG TAB PO (10:15)
[2018-12-04] MEDS: BENAZEPRIL 40 MG TAB PO ×2 (10:19→20:39)
[2018-12-04] MEDS: BALSAM PERU/CASTOR OIL 60 GM TUBE TOP ×2 (10:23→20:39)
[2018-12-04] MEDS: DICLOFENAC SODIUM 1% GEL 100 GM TUBE TP ×4 (10:23→20:39)
[2018-12-04] MEDS: MULTIVIT/CA CARB/B CMPLX/FA TAB PO (10:30)
[2018-12-04] MEDS: SENNA TAB PO (20:38)
[2018-12-04] MEDS: INSULIN GLARGINE [LANTus] (100 UNITS/ML) SYG SC (20:40)
[2018-12-05] MEDS: ACCU-CHEK XX ×5 (02:00→20:47)
[2018-12-05] MEDS: LEVOTHYROXINE 100 MCG TAB PO (06:13)
[2018-12-05] MEDS: SEVELAMER CARBONATE 800 MG TABLET PO ×3 (07:33→17:05)
[2018-12-05] MEDS: INSULIN ASPART [NOVOLOG] 3 ML PEN SC ×3 (07:35→17:07)
[2018-12-05] MEDS: DICLOFENAC SODIUM 1% GEL 100 GM TUBE TP ×4 (08:22→20:32)
[2018-12-05] MEDS: BALSAM PERU/CASTOR OIL 60 GM TUBE TOP ×2 (08:22→20:33)
[2018-12-05] MEDS: CHOLECALCIFEROL 2,000 UNIT CAP PO (08:23)
[2018-12-05] MEDS: BENAZEPRIL 40 MG TAB PO ×2 (08:23→20:24)
[2018-12-05] MEDS: ASPIRIN (EC) 81 MG TAB PO (08:23)
[2018-12-05] MEDS: FAMOTIDINE 20 MG TAB PO (08:23)
[2018-12-05] MEDS: MULTIVIT/CA CARB/B CMPLX/FA TAB PO (08:23)
[2018-12-05] MEDS: DOCUSATE SODIUM 100 MG CAP PO ×2 (08:23→20:23)
[2018-12-05] MEDS: LINAGLIPTIN 5 MG TABLET PO (08:23)
[2018-12-05] MEDS: HEPARIN 5,000 UNIT/1 ML VIAL SC ×2 (08:24→20:28)
[2018-12-05] MEDS: LACTULOSE 30ML CUP PO (12:08)
[2018-12-05] MEDS: SENNA TAB PO (20:24)
[2018-12-05] MEDS: INSULIN GLARGINE [LANTus] (100 UNITS/ML) SYG SC (20:26)
[2018-12-06] MEDS: INSULIN GLARGINE [LANTus] (100 UNITS/ML) SYG SC ×2 (00:01→20:29)
[2018-12-06] MEDS: ACCU-CHEK XX ×5 (02:13→21:07)
[2018-12-06] MEDS: LEVOTHYROXINE 100 MCG TAB PO (06:26)
[2018-12-06] MEDS: HYDROmorphONE 1 MG/ML SYG IM ×4 (08:17→18:07)
[2018-12-06] MEDS: SEVELAMER CARBONATE 800 MG TABLET PO ×3 (08:18→17:45)
[2018-12-06] MEDS: INSULIN ASPART [NOVOLOG] 3 ML PEN SC ×3 (08:22→17:48)
[2018-12-06] MEDS: FAMOTIDINE 20 MG TAB PO (09:12)
[2018-12-06] MEDS: CHOLECALCIFEROL 2,000 UNIT CAP PO (09:12)
[2018-12-06] MEDS: MULTIVIT/CA CARB/B CMPLX/FA TAB PO (09:12)
[2018-12-06] MEDS: DOCUSATE SODIUM 100 MG CAP PO ×2 (09:12→20:19)
[2018-12-06] MEDS: HEPARIN 5,000 UNIT/1 ML VIAL SC ×2 (09:12→20:29)
[2018-12-06] MEDS: ASPIRIN (EC) 81 MG TAB PO (09:12)
[2018-12-06] MEDS: LINAGLIPTIN 5 MG TABLET PO (09:13)
[2018-12-06] MEDS: BALSAM PERU/CASTOR OIL 60 GM TUBE TOP ×2 (09:19→20:20)
[2018-12-06] MEDS: DICLOFENAC SODIUM 1% GEL 100 GM TUBE TP ×4 (09:19→20:34)
[2018-12-06] MEDS: BENAZEPRIL 40 MG TAB PO ×2 (09:24→20:31)
[2018-12-06] MEDS: SENNA TAB PO (20:19)
[2018-12-07] MEDS: ACCU-CHEK XX ×5 (01:56→21:00)
[2018-12-07] MEDS: LEVOTHYROXINE 100 MCG TAB PO (06:13)
[2018-12-07] MEDS: INSULIN ASPART [NOVOLOG] 3 ML PEN SC ×3 (07:35→17:09)
[2018-12-07] MEDS: LINAGLIPTIN 5 MG TABLET PO (07:40)
[2018-12-07] MEDS: SEVELAMER CARBONATE 800 MG TABLET PO ×3 (07:40→17:06)
[2018-12-07] MEDS: HYDROmorphONE 1 MG/ML SYG IM (07:42)
[2018-12-07] MEDS: HEPARIN 5,000 UNIT/1 ML VIAL SC ×2 (08:24→20:20)
[2018-12-07] MEDS: ASPIRIN (EC) 81 MG TAB PO (08:25)
[2018-12-07] MEDS: DOCUSATE SODIUM 100 MG CAP PO ×2 (08:25→20:18)
[2018-12-07] MEDS: MULTIVIT/CA CARB/B CMPLX/FA TAB PO (08:25)
[2018-12-07] MEDS: CHOLECALCIFEROL 2,000 UNIT CAP PO (08:25)
[2018-12-07] MEDS: BENAZEPRIL 40 MG TAB PO ×2 (08:25→20:18)
[2018-12-07] MEDS: FAMOTIDINE 20 MG TAB PO (08:25)
[2018-12-07] MEDS: BALSAM PERU/CASTOR OIL 60 GM TUBE TOP ×2 (08:26→20:22)
[2018-12-07] MEDS: DICLOFENAC SODIUM 1% GEL 100 GM TUBE TP ×4 (08:26→20:22)
[2018-12-07] MEDS: SENNA TAB PO (20:18)
[2018-12-07] MEDS: INSULIN GLARGINE [LANTus] (100 UNITS/ML) SYG SC (20:41)
[2018-12-08] MEDS: ACCU-CHEK XX ×6 (02:00→20:13)
[2018-12-08] MEDS: LEVOTHYROXINE 100 MCG TAB PO (05:53)
[2018-12-08] MEDS: SEVELAMER CARBONATE 800 MG TABLET PO ×3 (08:01→17:29)
[2018-12-08] MEDS: LINAGLIPTIN 5 MG TABLET PO (08:02)
[2018-12-08] MEDS: INSULIN ASPART [NOVOLOG] 3 ML PEN SC ×3 (08:02→17:29)
[2018-12-08] MEDS: MULTIVIT/CA CARB/B CMPLX/FA TAB PO (09:00)
[2018-12-08] MEDS: DOCUSATE SODIUM 100 MG CAP PO ×2 (09:00→20:10)
[2018-12-08] MEDS: ASPIRIN (EC) 81 MG TAB PO (09:00)
[2018-12-08] MEDS: BENAZEPRIL 40 MG TAB PO ×2 (09:00→20:13)
[2018-12-08] MEDS: CHOLECALCIFEROL 2,000 UNIT CAP PO (09:00)
[2018-12-08] MEDS: FAMOTIDINE 20 MG TAB PO (09:00)
[2018-12-08] MEDS: HEPARIN 5,000 UNIT/1 ML VIAL SC ×2 (09:02→20:11)
[2018-12-08] MEDS: DICLOFENAC SODIUM 1% GEL 100 GM TUBE TP ×4 (09:02→20:12)
[2018-12-08] MEDS: BALSAM PERU/CASTOR OIL 60 GM TUBE TOP ×2 (09:02→20:12)
[2018-12-08] MEDS: SENNA TAB PO (20:10)
[2018-12-08] MEDS: INSULIN GLARGINE [LANTus] (100 UNITS/ML) SYG SC (20:11)
[2018-12-09] MEDS: LEVOTHYROXINE 100 MCG TAB PO (06:38)
[2018-12-09] MEDS: ACCU-CHEK XX ×4 (07:05→20:51)
[2018-12-09] MEDS: INSULIN ASPART [NOVOLOG] 3 ML PEN SC ×3 (07:47→17:04)
[2018-12-09] MEDS: LINAGLIPTIN 5 MG TABLET PO (07:59)
[2018-12-09] MEDS: MULTIVIT/CA CARB/B CMPLX/FA TAB PO (08:56)
[2018-12-09] MEDS: BENAZEPRIL 40 MG TAB PO ×2 (08:56→20:43)
[2018-12-09] MEDS: ASPIRIN (EC) 81 MG TAB PO (08:56)
[2018-12-09] MEDS: FAMOTIDINE 20 MG TAB PO (08:56)
[2018-12-09] MEDS: BALSAM PERU/CASTOR OIL 60 GM TUBE TOP ×2 (08:56→20:50)
[2018-12-09] MEDS: SEVELAMER CARBONATE 800 MG TABLET PO ×3 (08:56→16:59)
[2018-12-09] MEDS: DOCUSATE SODIUM 100 MG CAP PO ×2 (08:56→20:43)
[2018-12-09] MEDS: CHOLECALCIFEROL 2,000 UNIT CAP PO (08:56)
[2018-12-09] MEDS: HEPARIN 5,000 UNIT/1 ML VIAL SC ×2 (08:58→20:39)
[2018-12-09] MEDS: DICLOFENAC SODIUM 1% GEL 100 GM TUBE TP ×4 (08:59→20:50)
[2018-12-09] MEDS: LACTULOSE 30ML CUP PO (12:06)
[2018-12-09] MEDS: INSULIN GLARGINE [LANTus] (100 UNITS/ML) SYG SC (20:40)
[2018-12-09] MEDS: SENNA TAB PO (20:43)
[2018-12-10] MEDS: ACCU-CHEK XX ×3 (02:00→07:46)
[2018-12-10] MEDS: LEVOTHYROXINE 100 MCG TAB PO (06:27)
[2018-12-10] MEDS: SEVELAMER CARBONATE 800 MG TABLET PO ×2 (07:46→14:50)
[2018-12-10] MEDS: HYDROmorphONE 1 MG/ML SYG IM ×3 (07:46→14:16)
[2018-12-10] MEDS: INSULIN ASPART [NOVOLOG] 3 ML PEN SC ×2 (07:51→15:07)
[2018-12-10] MEDS: LINAGLIPTIN 5 MG TABLET PO (07:55)
[2018-12-10] MEDS: DOCUSATE SODIUM 100 MG CAP PO ×2 (09:00→16:21)
[2018-12-10] MEDS: ASPIRIN (EC) 81 MG TAB PO ×3 (09:00→16:22)
[2018-12-10] MEDS: MULTIVIT/CA CARB/B CMPLX/FA TAB PO ×2 (09:00→16:54)
[2018-12-10] MEDS: CHOLECALCIFEROL 2,000 UNIT CAP PO (09:00)
[2018-12-10] MEDS: DICLOFENAC SODIUM 1% GEL 100 GM TUBE TP ×4 (09:00→17:00)
[2018-12-10] MEDS: FAMOTIDINE 20 MG TAB PO ×2 (09:00→16:16)
[2018-12-10] MEDS: BENAZEPRIL 40 MG TAB PO (09:00)
[2018-12-10] MEDS: HEPARIN 5,000 UNIT/1 ML VIAL SC (11:30)
[2018-12-10] MEDS: BALSAM PERU/CASTOR OIL 60 GM TUBE TOP (14:14)
[2018-12-10] MEDS: oxyCODONE 5 MG TAB PO (17:04)
== END 2018-12-10 18:00 | disposition home health service (06) | DRG 559 ==
LOC: VRC 23:08
PROVIDERS: Physical Medicine & Rehabilitation
PROC: F07Z5ZZ Bed Mobility Treatment (ICD-10-PCS; principal; 2018-11-29)
PROC: F07Z8ZZ Transfer Training Treatment (ICD-10-PCS; 2018-11-29)
PROC: F07Z9ZZ Gait Training/Functional Ambulation Treatment (ICD-10-PCS; 2018-11-29)
PROC: F08Z2ZZ Grooming/Personal Hygiene Treatment (ICD-10-PCS; 2018-11-29)
PROC: F08Z1ZZ Dressing Techniques Treatment (ICD-10-PCS; 2018-11-29)
PROC: F08Z0ZZ Bathing/Showering Techniques Treatment (ICD-10-PCS; 2018-11-29)
PROC: 5A1D70Z Performance of Urinary Filtration, Intermittent, Less than 6 Hours Per Day (ICD-10-PCS; 2018-11-29)
DX: S72.142D Displaced intertrochanteric fracture of left femur, subsequent encounter for closed fracture with routine healing (principal); N18.6 End stage renal disease; I12.0 Hypertensive chronic kidney disease with stage 5 chronic kidney disease or end stage renal disease; G89.18 Other acute postprocedural pain; E11.22 Type 2 diabetes mellitus with diabetic chronic kidney disease; E03.9 Hypothyroidism, unspecified; E21.3 Hyperparathyroidism, unspecified; E11.51 Type 2 diabetes mellitus with diabetic peripheral angiopathy without gangrene; W19.XXXD Unspecified fall, subsequent encounter; E11.319 Type 2 diabetes mellitus with unspecified diabetic retinopathy without macular edema; N40.0 Benign prostatic hyperplasia without lower urinary tract symptoms; D63.1 Anemia in chronic kidney disease; E11.40 Type 2 diabetes mellitus with diabetic neuropathy, unspecified; L89.620 Pressure ulcer of left heel, unstageable; R53.81 Other malaise; F06.31 Mood disorder due to known physiological condition with depressive features; Z99.2 Dependence on renal dialysis; Z79.4 Long term (current) use of insulin
CPT/HCPCS: 80053; 80069; 82962; 85025; 87081; 87340; 90935; 97110; 97112; 97116; 97150; 97163; 97166; 97530; 97535

== ENCOUNTER 2019-01-18 10:54 | Emergency (ER) | payer MEDICARE, OTHER ==
[2019-01-18 12:21] LABS: ADD MAN DIFF? NO
[2019-01-18 12:35] LABS: BASOPHIL # 0.1 10^3/ul (0.0-0.1); BASOPHILS % 1.5 % (0.0-2.0); EOSINOPHILS # 0.3 10^3/ul (0.0-0.5); EOSINOPHILS % 8.1 % (0.0-7.0); HEMATOCRIT 28.2 % (42.0-52.0); HEMOGLOBIN 8.8 g/dl (14.0-18.0); LYMPHOCYTES # 0.8 10^3/ul (0.8-2.9); LYMPHOCYTES % 23.1 % (15.0-51.0); MEAN CORPUSCULAR HEMOGLOBIN 26.8 pg (29.0-33.0); MEAN CORPUSCULAR HGB CONC 31.2 g/dl (32.0-37.0); MONOCYTE # 0.4 10^3/ul (0.3-0.9); MONOCYTES % 13.2 % (0.0-11.0); NEUTROPHIL # 1.8 10^3/ul (1.6-7.5); NEUTROPHILS % 53.2 % (39.0-77.0); PLATELET COUNT 248 10^3/UL (140-415); RED BLOOD COUNT 3.28 10^6/ul (4.70-6.10); RED CELL DISTRIBUTION WIDTH 16.5 % (11.5-14.5)
[2019-01-18 12:35] LABS: WHITE BLOOD COUNT 3.3 10^3/ul (4.8-10.8)
[2019-01-18 12:55] LABS: INR 1.07; PT RATIO 1.1
[2019-01-18 12:56] LABS: PARTIAL THROMBOPLASTIN TIME 38.5 Sec (23.0-35.0)
[2019-01-18 13:03] LABS: ALANINE AMINOTRANSFERASE 18 IU/L (13-69); ALBUMIN 3.4 g/dl (3.3-4.9); ALBUMIN/GLOBULIN RATIO 1.03; ALKALINE PHOSPHATASE 98 IU/L (42-121); ANION GAP 7 (5-13); ASPARTATE AMINO TRANSFERASE 35 IU/L (15-46); BILIRUBIN,INDIRECT 0.2 mg/dl (0-1.1); BILIRUBIN,TOTAL 0.2 mg/dl (0.2-1.3); BLOOD UREA NITROGEN 32 mg/dl (7-20); CALCIUM 8.2 mg/dl (8.4-10.2); CARBON DIOXIDE 32 mmol/L (21-31); CHLORIDE 100 mmol/L (97-110); CREATININE 5.84 mg/dl (0.61-1.24); GLUCOSE 92 mg/dl (70-220); POTASSIUM 4.1 mmol/L (3.5-5.1); SODIUM 139 mmol/L (135-144); TOTAL PROTEIN 6.7 g/dl (6.1-8.1)
[2019-01-18] MEDS: LIDOCAINE 1% (MPF) 5 ML VIAL (15:11)
== END 2019-01-18 15:27 | disposition home or self-care (01) ==
LOC: E/R 10:54
DX: K74.60 Unspecified cirrhosis of liver (principal); R18.8 Other ascites; I10 Essential (primary) hypertension; E11.9 Type 2 diabetes mellitus without complications; Z79.4 Long term (current) use of insulin
CPT/HCPCS: 74176; 80053; 85025; 85610; 85730; 99285-25